=== PATIENT | female | born 1990 | race Caucasian/White ===

== ENCOUNTER 2016-04-21 21:52 | Emergency (ER) | payer BC, OTHER ==
[~2016-04-21] VITALS: Ht 160 cm; Wt 52.2 kg
[~2016-04-21 21:52] MED LIST: CIPR-255 PO; ONDA4TAB10 SL; OXYC1TAB3 PO
[2016-04-21 21:56] VITALS: TEMP 36.8; Ht 160 cm; Wt 52.2 kg
[2016-04-21] MEDS ORDERED: SERT50TA PO (22:15)
[2016-04-21] MEDS ORDERED: ONDANSETRON INJ 2 MG/ML 2 ML VIAL IV STA (22:28)
[2016-04-21] MEDS ORDERED: SODIUM CHLORIDE 0.9% 1000ML 1,000 ML IV STA (22:28)
[2016-04-21] MEDS ORDERED: KETOROLAC TROMETHAMINE 30 MG/ML VIAL IV STA (22:28)
[2016-04-21 22:50] LABS: BASO % 0.3 %; BASO ABS # 0.03 K/uL (0-0.2); COMPLETE YES; EOS % 1.6 %; IG% 0.2 %; LYMPH % 31.7 %; LYMPH ABS # 3.27 K/uL (1.2-3.4); MEAN CELL VOLUME 88.8 fL (80-100); MEAN CORPUSCULAR HEMOGLOBIN 31.5 pg (25-34); MEAN CORPUSCULAR HGB CONC 35.4 g/dl (32-36); MEAN PLATELET VOLUME 10.4 fL (7.4-10.4); MONO % 8.4 %; NEUT % 57.8 %; PLATELET COUNT 221 K/uL (130-400); RED BLOOD COUNT 3.94 M/uL (4.2-5.4); WHITE BLOOD COUNT 10.32 K/uL (4.8-10.8)
[2016-04-21 23:06] LABS: URINE APPEARANCE CLOUDY (CLEAR); URINE BILIRUBIN NEG (NEG); URINE COLOR YELLOW; URINE EPITHELIAL CELL AUTO >30 /lpf (0-5); URINE NITRITE NEG (NEG); URINE PH 5.5 (4.5-7.5); URINE SPECIFIC GRAVITY 1.017 (1.000-1.030); UROBILINOGEN POS (NEG); ZZUR CULT IF INDIC CLEAN CATCH YES
[2016-04-21 23:11] LABS: BUN/CREATININE RATIO 11.4 (10-20); CALCIUM 8.1 mg/dl (8.5-10.1); CREATININE 0.62 mg/dl (0.60-1.20); POTASSIUM 3.2 mmol/L (3.5-5.1)
[2016-04-21 23:14] LABS: ALB/GLOB RATIO 1.3 (0.9-2)
[2016-04-21 23:16] LABS: MANUAL MICROSCOPIC REQUIRED? NO; REVIEW REQ? YES
[2016-04-21 23:24] LABS: URINE MUCUS PRESENT (NONE PRSENT)
[2016-04-21] MEDS ORDERED: CIPROFLOXACIN 400MG / 200ML D5W IV STA (23:52)
[2016-04-22] MEDS ORDERED: MoRPHine SULFATE 2 MG/ML CARP IV STA (00:07)
[2016-04-22] MEDS ORDERED: CIPR-255 PO (02:11)
[2016-04-22] MEDS ORDERED: HYDR-5688 PO (02:11)
--- NOTE | 2016-04-22 02:13 | EMERGENCY ROOM VISIT NOTE ---
History First contact with patient: 22:11 Chief Complaint: ABDOMINAL PAIN Stated Complaint: HEADACHE,DIZZINESS,CRAMPING,VAG BLEEDING,KIDNEY PA Nursing Triage Summary: Patient c/o abdominal pain, radiates into right kidney and up right side of back. Patient also with vaginal bleeding, but states it is not time for her menstrual cycle. Patient was seen at walk in clinic and was given Macrobid but states she did not take it yet. Also c/o headache. History of Present Illness The patient is a 25 year old female who presents to the Emergency Department by private vehicle for evaluation of her RIGHT flank pain, bradycardia his urination, headache, and lightheadedness. She reports her symptoms have been ongoing for the last few days. She reports that she's had lower abdominal cramping which progressed into urinary urgency. She has had fevers and chills. She was seen earlier today at a walk-in clinic and provided Macrobid which she did not start. She reports that her symptoms worsened today which prompted her visit to the emergency Department this evening. She denies any nausea or vomiting. She reports no upper abdominal pain. She denies any chance for . She is tried [id number] medications for her symptoms. She rates her current discomfort as 9/10. The patient denies any chest pain, palpitations, shortness breath, hematemesis, hematochezia, melena, hematuria, or dysuria. Review of Systems A complete 10-point Review of Systems was discussed with the patient, with pertinent positives and negatives listed in the History of Present Illness. All remaining Review of Systems questions can be considered negative unless otherwise specified. Past Medical/Surgical History Medical Problems: (1) Vaginal delivery Family History No pertinent family history Social History Smoking Status: Current Every Day Smoker Smokeless Tobacco Use: No Drug Use: none Marital Status: single Housing Status: lives with family Current/Historical Medications Scheduled Ciprofloxacin Hcl (Cipro), 500 MG PO BID Sertraline (Zoloft), 50 MG PO DAILY Scheduled PRN Hydrocodone/Acetaminophen 5MG/325MG (Bailey 5MG/325MG), 1-2 TABLET PO Q4H PRN for Pain Allergies Coded Allergies: Latex1 -Allergic Contact Dermititis (Verified Allergy, Intermediate, CONDOMS = RASH, 10/20/15) Penicillins (Verified Allergy, Unknown, 10/20/15) Physical Exam Vital Signs Date Time Temp Pulse Resp B/P Pulse Ox O2 Delivery O2 Flow Rate FiO2 04/22/16 02:29 69 16 114/71 100 04/22/16 00:00 79 18 98 Room Air 04/21/16 21:56 36.8 84 16 116/74 97 Room Air Pain Rating (0-10): 9 Physical Exam VITAL SIGNS - Vital signs and nursing notes were reviewed. GENERAL - 25-year-old female appearing her stated age who is in no acute distress. Communicates well with provider and answers questions appropriately. LUNGS - Chest wall symmetric without accessory muscle use, intercostals retractions, or central cyanosis. Normal vesicular breath sounds CTA B/L. No wheezes, rales, or rhonchi appreciated. CARDIAC - RRR with S1/S2. No murmur, rubs, or gallops appreciated. ABDOMEN - Abdominal contour flat and without pulsations or visible masses. BS normoactive all four quadrants. No tenderness to palpation appreciated throughout. No guarding. No Rebound Tenderness. Negative Rovsing's. Negative Cai's. No palpable masses, hepatosplenomegaly, or ascites noted. Positive RIGHT sided CVA tenderness to percussion. EXTREMITIES - No clubbing or peripheral cyanosis. No pretibial edema present. +3 /5 radial and dorsalis pedis pulses palpated throughout. PSYCH - A&Ox3 and cooperates fully with examiner. Pt is very pleasant and interacts well with examiner. Medical Decision & Procedures ER Provider Diagnostic Interpretation: Radiological imaging and reports were reviewed by myself. Radiologist's Interpretation per [facility] as follows: US PELVIC/ENDOVAG: Appropriately positioned intrauterine device. 1.9 cm isoechoic nonvascular lesion in the right ovary is likely a complex cyst. Small amount of free pelvic fluid may be physiologic US RENAL: No hydronephrosis. Bladder wall thickening likely reflects lack of distention, but correlate for any symptoms of cystitis X-ray of the pelvis was obtained and reviewed by myself. IUD in place per my interpretation. Radiologist's impression unavailable to time of dictation. Laboratory Results 04/21/16 22:40 Red Blood Count 3.94, Mean Corpuscular Volume 88.8, Mean Corpuscular Hemoglobin 31.5, Mean Corpuscular Hemoglobin Concent 35.4, Mean Platelet Volume 10.4, Neutrophils (%) (Auto) 57.8, Lymphocytes (%) (Auto) 31.7, Monocytes (%) (Auto) 8.4, Eosinophils (%) (Auto) 1.6, Basophils (%) (Auto) 0.3, Neutrophils # (Auto) 5.97, Lymphocytes # (Auto) 3.27, Monocytes # (Auto) 0.87, Eosinophils # (Auto) 0.16, Basophils # (Auto) 0.03 04/21/16 22:40 Test 04/21/16 22:40 White Blood Count 10.32 K/uL (4.8-10.8) Red Blood Count 3.94 M/uL (4.2-5.4) Hemoglobin 12.4 g/dL (12.0-16.0) Hematocrit 35.0 % (37-47) Mean Corpuscular Volume 88.8 fL (80-100) Mean Corpuscular Hemoglobin 31.5 pg (25-34) Mean Corpuscular Hemoglobin Concent 35.4 g/dl (32-36) Platelet Count 221 K/uL (130-400) Mean Platelet Volume 10.4 fL (7.4-10.4) Neutrophils (%) (Auto) 57.8 % Lymphocytes (%) (Auto) 31.7 % Monocytes (%) (Auto) 8.4 % Eosinophils (%) (Auto) 1.6 % Basophils (%) (Auto) 0.3 % Neutrophils # (Auto) 5.97 K/uL (1.4-6.5) Lymphocytes # (Auto) 3.27 K/uL (1.2-3.4) Monocytes # (Auto) 0.87 K/uL (0.11-0.59) Eosinophils # (Auto) 0.16 K/uL (0-0.5) Basophils # (Auto) 0.03 K/uL (0-0.2) RDW Standard Deviation 39.7 fL (36.4-46.3) RDW Coefficient of Variation 12.3 % (11.5-14.5) Immature Granulocyte % (Auto) 0.2 % Immature Granulocyte # (Auto) 0.02 K/uL (0.00-0.02) Urine Color YELLOW Urine Appearance CLOUDY (CLEAR) Urine pH 5.5 (4.5-7.5) Urine Specific [place] 1.017 (1.000-1.030) Urine Protein TRACE (NEG) Urine Glucose (UA) NEG (NEG) Urine Ketones NEG (NEG) Urine Occult Blood 3+ (NEG) Urine Nitrite NEG (NEG) Urine Bilirubin NEG (NEG) Urine Urobilinogen POS (NEG) Urine Leukocyte Esterase MODERATE (NEG) Urine WBC (Auto) 10-30 /hpf (0-5) Urine RBC (Auto) 10-30 /hpf (0-4) Urine Hyaline Casts (Auto) 0 /lpf (0-5) Urine Epithelial Cells (Auto) >30 /lpf (0-5) Urine Bacteria (Auto) 1+ (NEG) Urine Mucus PRESENT (NONE PRSENT) Urine Yeast (Auto) (NONE PRSENT) Urine Test NEG (NEG) Anion Gap 9.0 mmol/L (3-11) Est Creatinine Clear Calc Drug Dose 113.3 ml/min Estimated GFR () 144.2 Estimated GFR (Non- 124.4 BUN/Creatinine Ratio 11.4 (10-20) Calcium Level 8.1 mg/dl (8.5-10.1) Magnesium Level 2.0 mg/dl (1.8-2.4) Total Bilirubin 0.4 mg/dl (0.2-1) Aspartate Amino Transf (AST/SGOT) 11 U/L (15-37) Alanine Aminotransferase (ALT/SGPT) 16 U/L (12-78) Alkaline Phosphatase 52 U/L (45-117) Total Protein 6.7 gm/dl (6.4-8.2) Albumin 3.8 gm/dl (3.4-5.0) Globulin 2.9 gm/dl (2.5-4.0) Albumin/Globulin Ratio 1.3 (0.9-2) Date/Time Source Procedure Growth Status 04/21/16 22:40 Urine , Clean Catch Urine Culture - Final THREE TYPES OF ORGANSIMS PRESENT, ALL... Complete Medications Administered Medications (Trade) Dose Ordered Sig/July Route Start Time Stop Time Status Last Admin Dose Admin Sodium Chloride (Nss 1000ml) 1,000 ml @ 999 mls/hr Q1H1M STAT IV 04/21/16 22:28 04/21/16 23:28 DC 04/21/16 22:28 999 MLS/HR Ondansetron HCl (Zofran Inj) 4 mg NOW STAT IV 04/21/16 22:28 04/21/16 22:31 DC 04/21/16 22:28 4 MG Ketorolac Tromethamine (Toradol Inj) 30 mg NOW STAT IV 04/21/16 22:28 04/21/16 22:31 DC 04/21/16 22:28 30 MG Ciprofloxacin/ Dextrose (Cipro / D5w) 400 mg NOW STAT IV 04/21/16 23:52 04/21/16 23:54 DC 04/22/16 00:10 400 MG Morphine Sulfate (MoRPHine SULFATE INJ) 2 mg NOW STAT IV 04/22/16 00:07 04/22/16 00:08 DC 04/22/16 00:10 2 MG Ciprofloxacin (Cipro 500MG Home Pack) 1 homepack UD ONCE PO 04/22/16 02:15 04/22/16 02:16 DC 04/22/16 02:25 1 HOMEPACK Acetaminophen/ Hydrocodone Bitart (Bailey 5/325mg Home Pack) 1 homepack UD ONCE PO 04/22/16 02:15 04/22/16 02:16 DC 04/22/16 02:24 1 HOMEPACK ED Course Patient was seen and evaluated by myself. Labs were drawn, saline lock in place. The patient was hydrated with a 1000 mL normal saline bolus. She received 4 mg Zofran and 30 g Toradol intravenously for pain. Laboratory results demonstrate no acute leukocytosis, worrisome anemia, or bandemia. The patient has no significant electrolyte abnormalities. Urinalysis concerning for UTI. Patient was treated with IV Cipro. After return from ultrasound imaging studies, the patient complains of increasing pain. She was treated with 2 mg morphine for pain. Imaging results above. Laboratory results and imaging studies were reviewed patient who acknowledges understanding. The patient was placed on Cipro for home. She was educated on following up with her primary care provider from today's visit. She was educated on worrisome symptoms for return visit to the emergency department. Patient discharged home afebrile and in good condition. Medical Decision Given the patient's presentation and exam findings, I did elect to perform the above-mentioned workup. The patient presents today complaining of flank pain as well as dysuria. She has no fever. She has no leukocytosis. She does have findings of her urine consistent with UTI. The patient is likely experiencing an acute pyelonephritis. The patient will be treated with IV Cipro. She'll be changed from Macrobid which has much less today coverage. The patient will follow with her primary care provider from today's visit. She will return for any changing or worsening symptoms. Patient discharged home afebrile and in good condition. In the evaluation and treatment of this patient, the following differential diagnoses were considered: Bladder Cancer, Chlamydial Genitourinary Infection, Cystitis, Herpes Simplex, Interstitial Cystitis, PID, Pyelonephritis, Urethritis , or Vaginitis. Impression Primary Impression: Pyelonephritis Departure Information Dispostion Home / Self-Care Condition GOOD Prescriptions Hydrocodone/Acetaminophen 5MG/325MG (Bailey 5MG/325MG) Tab 1-2 TABLET PO Q4H Y for Pain, #16 TAB For Initial Treatment Prov: Rick Recinos PA-C 04/22/16 Ciprofloxacin Hcl (CIPRO) 500 Mg Tab 500 MG PO BID for 10 Days, #20 TAB Prov: Rick Recinos PA-C 04/22/16 Referrals Saul Scruggs MD (PCP) Patient Instructions My [facility], Pyelonephritis - [facility] Additional Instructions You have been treated in the Emergency Department for a Kidney Infection ( Pyelonephritis). You have been prescribed Cipro to be taken as prescribed. This is an antibiotic. All antibiotics have the potential to cause diarrhea. Stop this medication and contact a medical provider if you were to develop any significant adverse side effects including: wheezing, shortness of breath, passing out, vomiting, or a diffuse rash. Always take antibiotics as directed and COMPLETE the ENTIRE course regardless of the improvement of your symptoms. You have been prescribed Bailey to be used for pain control. This is a narcotic medication. You cannot drive or consume alcohol while on this medicine. This medicine should only be used for pain that cannot be controlled with over-the- counter pain medicines. For pain control, you can use the following [id number]-[id number] medicines (if >12 yo): - Regular strength (325mg/tab) Tylenol (acetaminophen) 2 tabs every 4-6 hours as needed. Do not exceed 12 tablets in a 24 hour period. Avoid taking more than 4 grams (4000 mg) of Tylenol per day. This includes any other sources of acetaminophen you may take on a regular basis. - Regular strength (200 mg/tab) Advil (ibuprofen) 1-2 tabs every 4-6 hours as needed. Do not exceed a dose of 3200 mg per day. Drink plenty of water and stay well hydrated. As with any trip to the Emergency Department, you should follow-up with your Primary Care Provider from today's visit. Return to the emergency department if your symptoms persist despite treatment plan outlined above or if the following symptoms occur: increased fevers, chills , low back pain, nausea/vomiting, or blood in your urine.
[2016-04-22] MEDS ORDERED: CIPROFLOXACIN 500MG HOME PACK PO ONE (02:15)
[2016-04-22] MEDS ORDERED: NORCO 5/325MG HOME PACK PO ONE (02:15)
[2016-04-22 02:29] VITALS: BP 114/71; PULSE 69; O2SAT 100
--- NOTE | 2016-04-22 06:39 | DIAGNOSTIC IMAGING REPORT ---
PELVIS 1 OR 2 VIEW ROUTINE CLINICAL HISTORY: IUD placement pain COMPARISON: None. DISCUSSION: The bones and joint spaces appear intact. There is no evidence of fracture, dislocation or bony disease. There is no evidence for soft tissue swelling. Intrauterine device located centrally IMPRESSION: Negative study. Electronically signed by: Rodriguez Pinedo M.D. 04/22/2016 6:37 AM Dictated Date/Time: 04/22/2016 6:37 AM
--- NOTE | 2016-04-22 06:41 | DIAGNOSTIC IMAGING REPORT ---
PELVIC ULTRASOUND, TRANSABDOMINAL AND TRANSVAGINAL HISTORY: Pelvic pain IUD placement COMPARISON: None. FINDINGS: Uterus: Midline and anteflexed in configuration. Intrauterine device located centrally. Endometrial stripe: 5 mm Right ovary: Normal vascular flow with bone 0.9 cm cyst Left ovary: Normal in size and demonstrates normal color flow. Miscellaneous:No pelvic free fluid. IMPRESSION: Intrauterine device in appropriate position within the central uterine canal. Small right ovarian cyst. Electronically signed by: Rodriguez Pinedo M.D. 04/22/2016 6:40 AM Dictated Date/Time: 04/22/2016 6:39 AM
--- NOTE | 2016-04-22 07:19 | DIAGNOSTIC IMAGING REPORT ---
ULTRASOUND KIDNEYS AND BLADDER CLINICAL HISTORY: Flank pain. COMPARISON STUDY: Renal ultrasound dated 10/20/2015. TECHNIQUE: Real-time, grayscale, and color flow sonography of the kidneys and bladder is performed. Images are reviewed in the transverse and longitudinal planes. FINDINGS: Kidneys: The kidneys are normal in size and echotexture. The right kidney measures 11.3 x 4.1 x 5.6 cm and the left kidney measures 12.5 x 5.6 x 4.6 cm. There is no hydronephrosis. No shadowing renal calculi are identified. There is no sonographic evidence of contour deforming renal mass lesion. No perinephric fluid is identified. Bladder: The bladder is decompressed and grossly unremarkable. Ureteral jets were not seen. An intrauterine device is noted in the partially imaged uterus. IMPRESSION: 1. The kidneys are normal in size and without hydronephrosis. 2. The bladder was decompressed and not well evaluated. Electronically signed by: Ventura Almonte M.D. 04/22/2016 7:18 AM Dictated Date/Time: 04/22/2016 7:16 AM
== END 2016-04-22 02:30 | disposition home or self-care (01) ==
LOC: C.EDB 21:53 → C.EDA 04-22 02:30
DX: N12 Tubulo-interstitial nephritis, not specified as acute or chronic (principal); F17.210 Nicotine dependence, cigarettes, uncomplicated; Z79.899 Other long term (current) drug therapy

== ENCOUNTER 2016-04-25 15:48 | Emergency (ER) | payer OTHER ==
[~2016-04-25] VITALS: Ht 160 cm; Wt 52.7 kg
[~2016-04-25 15:48] MED LIST changes: +HYDR-5688 PO; -ONDA4TAB10 SL; -OXYC1TAB3 PO; +SERT50TA PO
[2016-04-25 15:52] VITALS: TEMP 36.8; Ht 160 cm; Wt 52.7 kg
[2016-04-25] MEDS ORDERED: KETOROLAC TROMETHAMINE 30 MG/ML VIAL IV STA (16:06)
[2016-04-25] MEDS ORDERED: SODIUM CHLORIDE 0.9% 1000ML 1,000 ML IV STA (16:06)
--- NOTE | 2016-04-25 16:35 | EMERGENCY ROOM VISIT NOTE ---
History Report prepared by Summer: Barbie Tolliver Under the Supervision of: Dr. Jelena Valdez D.O. First contact with patient: 15:57 Chief Complaint: INFECTION Stated Complaint: KIDNEY INFECTION, VAGINAL BLEEDING- PHYSICIAN REF Nursing Triage Summary: pt c/o kidney infection. sent here from pcp for right flank pain. was seen here thursday had f/u today. pt also has vaginal bleeding History of Present Illness The patient is a 25 year old female who presents to the Emergency Room with complaints of a persistent infection that began several days ago. She currently rates her discomfort as a 7/10 in severity. The patient states that last she developed right flank pain and states that Thursday she developed vaginal bleeding. She states that Thursday she went [employer] in [place] and was given a prescription for Macrobid for a UTI. The patient states that her pain worsened Thursday evening so she came to the emergency department for further work up. She states that after all of her testings, she was placed on Cipro for a kidney infection. The patient states that today she had a follow up with her PCP, and was instructed to come back to the emergency department for a CT scan. She states that she has a history of a kidney stone in September. The patient denies any being on any blood thinners. The patient states that her pain is wrapping from her right flank to her pelvic area. She additionally notes leg aches today and a headache today. The patient denies any previous abdominal surgeries. She states that she was given oxycodone for her pain, noting that she has taken it at night to help alleviate her pain. Source of History: patient Onset: several days ago Position: other (global) Symptom Intensity: 7/10 Quality: other (infection) Timing: other (persistent) Associated Symptoms: + abdominal pain (pelvic pain), + headache Note: Associated Symptoms: right flank pain, vaginal bleeding, leg cramping Review of Systems See HPI for pertinent positives & negatives. A total of 10 systems reviewed and were otherwise negative. Past Medical & Surgical Medical Problems: (1) Vaginal delivery Family History No pertinent family history Social History Smoking Status: Current Every Day Smoker Drug Use: none Marital Status: single Housing Status: lives with family Current/Historical Medications Scheduled Ciprofloxacin Hcl (Cipro), 500 MG PO BID Sertraline (Zoloft), 50 MG PO DAILY Scheduled PRN Hydrocodone/Acetaminophen 5MG/325MG ([place] 5MG/325MG), 1-2 TABLET PO Q4H PRN for Pain Allergies Coded Allergies: Latex1 -Allergic Contact Dermititis (Verified Allergy, Intermediate, CONDOMS = RASH, 04/25/16) Penicillins (Verified Allergy, Unknown, 04/25/16) Physical Exam Vital Signs Date Time Temp Pulse Resp B/P Pulse Ox O2 Delivery O2 Flow Rate FiO2 04/25/16 17:41 64 20 120/56 97 04/25/16 15:52 36.8 97 18 104/68 100 Room Air Physical Exam HEENT: Head - normocephalic and atraumatic Pupils are equal, round, and reactive to light. Extraocular eye muscles are intact, and sclera are anicteric. Nose - moist nasal mucosa without discharge. Mouth - moist buccal mucosa. Oropharynx is nonerythematous and there is no tonsillar exudate or edema noted. Neck: Supple; no JVD, nuchal rigidity, cervical lymphadenopathy. Heart: Regular rate and rhythm. There is a normal S1 and S2 with no murmurs, clicks, or gallops appreciated. Lungs: Clear to auscultation bilaterally with no wheezes, rales, or rhonchi. Abdomen: Soft, completely nontender, nondistended, with good bowel sounds. There are no palpable pulsatile masses or hepatosplenomegaly. There is no guarding, rigidity, or rebound noted. Back: Right CVA tenderness. Extremities: No evidence of cyanosis, clubbing, or edema. There are easily palpable peripheral pulses. Skin: warm and dry with good turgor and no rashes. Medical Decision & Procedures ER Provider Diagnostic Interpretation: CT results as stated below per my review and radiologist interpretation: ABDOMEN AND PELVIS CT WITHOUT CONTRAST CT DOSE: 429.92 mGy.cm HISTORY: Flank pain right flank pain TECHNIQUE: Multiaxial CT images of the abdomen and pelvis were performed without the use of intravenous and oral contrast according to the standard department stone protocol. COMPARISON STUDY: 72,012 FINDINGS: Lung bases are clear. Liver spleen and pancreas are unremarkable within limitations of an unenhanced scan. Kidneys negative for hydronephrosis or calcification. Increased fecal load is present throughout the colon. Uterus is anteflexed. There is intrauterine device within the central canal. IMPRESSION: 1. Increased fecal load throughout the colon consistent with a component of fecal stasis. 2. Study is otherwise negative within limitations of unenhanced scan. Electronically signed by: Rodriguez Pinedo M.D. 04/25/2016 4:57 PM Dictated Date/Time: 04/25/2016 4:55 PM Laboratory Results 04/25/16 16:25 Red Blood Count 4.09, Mean Corpuscular Volume 90.0, Mean Corpuscular Hemoglobin 31.3, Mean Corpuscular Hemoglobin Concent 34.8, Mean Platelet Volume 10.4, Neutrophils (%) (Auto) 53.8, Lymphocytes (%) (Auto) 36.7, Monocytes (%) (Auto) 6.7, Eosinophils (%) (Auto) 2.2, Basophils (%) (Auto) 0.5, Neutrophils # (Auto) 4.09, Lymphocytes # (Auto) 2.79, Monocytes # (Auto) 0.51, Eosinophils # (Auto) 0.17, Basophils # (Auto) 0.04 04/25/16 16:25 Test 04/25/16 16:25 White Blood Count 7.61 K/uL (4.8-10.8) Red Blood Count 4.09 M/uL (4.2-5.4) Hemoglobin 12.8 g/dL (12.0-16.0) Hematocrit 36.8 % (37-47) Mean Corpuscular Volume 90.0 fL (80-100) Mean Corpuscular Hemoglobin 31.3 pg (25-34) Mean Corpuscular Hemoglobin Concent 34.8 g/dl (32-36) Platelet Count 237 K/uL (130-400) Mean Platelet Volume 10.4 fL (7.4-10.4) Neutrophils (%) (Auto) 53.8 % Lymphocytes (%) (Auto) 36.7 % Monocytes (%) (Auto) 6.7 % Eosinophils (%) (Auto) 2.2 % Basophils (%) (Auto) 0.5 % Neutrophils # (Auto) 4.09 K/uL (1.4-6.5) Lymphocytes # (Auto) 2.79 K/uL (1.2-3.4) Monocytes # (Auto) 0.51 K/uL (0.11-0.59) Eosinophils # (Auto) 0.17 K/uL (0-0.5) Basophils # (Auto) 0.04 K/uL (0-0.2) RDW Standard Deviation 40.7 fL (36.4-46.3) RDW Coefficient of Variation 12.4 % (11.5-14.5) Immature Granulocyte % (Auto) 0.1 % Immature Granulocyte # (Auto) 0.01 K/uL (0.00-0.02) Anion Gap 8.0 mmol/L (3-11) Est Creatinine Clear Calc Drug Dose 121.5 ml/min Estimated GFR () 147.4 Estimated GFR (Non- 127.2 BUN/Creatinine Ratio 12.1 (10-20) Calcium Level 8.5 mg/dl (8.5-10.1) Total Bilirubin 0.2 mg/dl (0.2-1) Direct Bilirubin < 0.1 mg/dl (0-0.2) Aspartate Amino Transf (AST/SGOT) 14 U/L (15-37) Alanine Aminotransferase (ALT/SGPT) 17 U/L (12-78) Alkaline Phosphatase 61 U/L (45-117) Total Protein 7.3 gm/dl (6.4-8.2) Albumin 4.0 gm/dl (3.4-5.0) Laboratory results per my review. Medications Administered Medications (Trade) Dose Ordered Sig/July Route Start Time Stop Time Status Last Admin Dose Admin Sodium Chloride (Nss 1000ml) 1,000 ml @ 999 mls/hr Q1H1M STAT IV 04/25/16 16:06 04/25/16 17:06 DC 04/25/16 17:08 999 MLS/HR Ketorolac Tromethamine (Toradol Inj) 30 mg NOW STAT IV 04/25/16 16:06 04/25/16 16:08 DC 04/25/16 17:09 30 MG Procedure The patient was treated with Toradol Inj 30 mg IV, Sodium Chloride 1000 ml @ 999 mls/hr IV. ED Course 1600: Past medical records reviewed. The patient was evaluated in room B11B. A complete history and physical exam was performed. An IV lock was initiated and labs are drones above. The patient went for a CT scan of the abdomen/pelvis to rule out a ureteral calculi. 1606: Ordered Toradol Inj 30 mg IV, Sodium Chloride 1000 ml @ 999 mls/hr IV. 1714: I reevaluated the patient and she is feeling better. I discussed all the exam findings with her and I discussed the treatment plan. She verbalized complete understanding and agreement. She is ready to go home. Medical Decision The patient is a 25 year old female who presents to the ED with infection. Differential diagnosis includes pyelonephritis, infected kidney stone, appendicitis Lab interpretation: normal white count, stable H&H, BUN 7, creatinine 0.5, glucose 96, LFTs are normal. The patient's urine culture from couple of days ago was negative. CT scan of the abdomen/pelvis shows no evidence of kidney stone. I've encouraged patient use Tylenol or Motrin for pain. She can follow-up with her PCP if the symptoms persist. The patient had a moderate amount of stool on CT scan. She was encouraged to use milk of magnesia. Impression Primary Impression: Right flank pain Additional Impression: Constipation Scribe Attestation The scribe's documentation has been prepared under my direction and personally reviewed by me in its entirety. I confirm that the note above accurately reflects all work, treatment, procedures, and medical decision making performed by me. Departure Information Dispostion Home / Self-Care Referrals Saul Scruggs MD (PCP) Forms HOME CARE DOCUMENTATION FORM, IMPORTANT VISIT INFORMATION, WORK / SCHOOL INSTRUCTIONS Patient Instructions Constipation, ED Flank Pain Uncertain Cause, My [facility] Additional Instructions Rest. Stop the Cipro Take milk of magnesia til having soft/runny stools Follow up with PCP if pain persists Problem Qualifiers
[2016-04-25 16:44] LABS: BASO % 0.5 %; BASO ABS # 0.04 K/uL (0-0.2); COMPLETE YES; EOS % 2.2 %; HEMATOCRIT 36.8 % (37-47); IG% 0.1 %; LYMPH % 36.7 %; LYMPH ABS # 2.79 K/uL (1.2-3.4); MEAN CORPUSCULAR HEMOGLOBIN 31.3 pg (25-34); MEAN CORPUSCULAR HGB CONC 34.8 g/dl (32-36); MEAN PLATELET VOLUME 10.4 fL (7.4-10.4); MONO % 6.7 %; NEUT % 53.8 %; PLATELET COUNT 237 K/uL (130-400); RED BLOOD COUNT 4.09 M/uL (4.2-5.4); WHITE BLOOD COUNT 7.61 K/uL (4.8-10.8)
--- NOTE | 2016-04-25 16:59 | DIAGNOSTIC IMAGING REPORT ---
ABDOMEN AND PELVIS CT WITHOUT CONTRAST CT DOSE: 429.92 mGy.cm HISTORY: Flank pain right flank pain TECHNIQUE: Multiaxial CT images of the abdomen and pelvis were performed without the use of intravenous and oral contrast according to the standard department stone protocol. COMPARISON STUDY: 72,012 FINDINGS: Lung bases are clear. Liver spleen and pancreas are unremarkable within limitations of an unenhanced scan. Kidneys negative for hydronephrosis or calcification. Increased fecal load is present throughout the colon. Uterus is anteflexed. There is intrauterine device within the central canal. IMPRESSION: 1. Increased fecal load throughout the colon consistent with a component of fecal stasis. 2. Study is otherwise negative within limitations of unenhanced scan. Electronically signed by: Rodriguez Pinedo M.D. 04/25/2016 4:57 PM Dictated Date/Time: 04/25/2016 4:55 PM
[2016-04-25 17:01] LABS: ALT/SGPT 17 U/L (12-78); BLOOD UREA NITROGEN 7 mg/dl (7-18); BUN/CREATININE RATIO 12.1 (10-20); CALCIUM 8.5 mg/dl (8.5-10.1); CARBON DIOXIDE 24 mmol/L (21-32); CHLORIDE 109 mmol/L (98-107); CREATININE 0.58 mg/dl (0.60-1.20); GLUCOSE 96 mg/dl (70-99); POTASSIUM 3.8 mmol/L (3.5-5.1); SODIUM 141 mmol/L (136-145)
[2016-04-25 17:06] LABS: ALKALINE PHOSPHATASE 61 U/L (45-117); AST/SGOT 14 U/L (15-37)
[2016-04-25 17:41] VITALS: BP 120/56; PULSE 64; O2SAT 97
== END 2016-04-25 17:42 | disposition home or self-care (01) ==
LOC: C.EDB 15:50 → C.EDC 17:42
DX: R10.30 Lower abdominal pain, unspecified (principal); K59.00 Constipation, unspecified; F17.200 Nicotine dependence, unspecified, uncomplicated; Z79.899 Other long term (current) drug therapy; Z88.0 Allergy status to penicillin; Z91.040 Latex allergy status

== ENCOUNTER 2016-08-27 10:40 | Emergency (ER) | payer OTHER ==
[~2016-08-27] VITALS: Ht 160 cm; Wt 54.7 kg
[2016-08-27 10:57] VITALS: TEMP 36.9; Ht 160 cm; Wt 54.7 kg
[2016-08-27 12:00] LABS: BASO % 0.3 %; BASO ABS # 0.03 K/uL (0-0.2); COMPLETE YES; EOS % 0.7 %; HEMATOCRIT 39.2 % (37-47); IG% 0.2 %; LYMPH % 19.6 %; LYMPH ABS # 1.98 K/uL (1.2-3.4); MEAN CELL VOLUME 90.7 fL (80-100); MEAN CORPUSCULAR HEMOGLOBIN 30.8 pg (25-34); MEAN CORPUSCULAR HGB CONC 33.9 g/dl (32-36); MEAN PLATELET VOLUME 10.6 fL (7.4-10.4); MONO % 7.9 %; NEUT % 71.3 %; PLATELET COUNT 261 K/uL (130-400); RED BLOOD COUNT 4.32 M/uL (4.2-5.4); WHITE BLOOD COUNT 10.09 K/uL (4.8-10.8)
[2016-08-27 12:09] LABS: BUN/CREATININE RATIO 7.9 (10-20); CREATININE 0.73 mg/dl (0.60-1.20); POTASSIUM 3.3 mmol/L (3.5-5.1)
[2016-08-27] MEDS ORDERED: SODIUM CHLORIDE 0.9% 1000ML 1,000 ML IV STA (12:12)
[2016-08-27] MEDS ORDERED: ONDANSETRON INJ 2 MG/ML 2 ML VIAL IV STA (12:12)
[2016-08-27] MEDS ORDERED: HYDROmorphone INJ 1 MG/ML SYR IV STA (12:12)
[2016-08-27] MEDS ORDERED: CEFTRIAXONE SOD INJ 1 GM ADDVIAL IV STA (12:12)
[2016-08-27] MEDS ORDERED: KETOROLAC TROMETHAMINE 30 MG/ML VIAL IV STA (12:12)
[2016-08-27 12:15] LABS: ALB/GLOB RATIO 1.2 (0.9-2)
--- NOTE | 2016-08-27 12:16 | EMERGENCY ROOM VISIT NOTE ---
History Report prepared by Summer: Abimael Carver Under the Supervision of: Dr. Donte Nash M.D. First contact with patient: 12:05 Chief Complaint: GI ASSESSMENT Stated Complaint: CARRION, N, DIZZY, FEVER, ABD. PAIN, BLOOD LOSS Nursing Triage Summary: pt reports for the "past few months I have been having inconsistent periods, I get a period and then I get bleeding with clots, I had a actual period for fathers day and now today I've got heavy flow and blood clots. I feel like I have a UTI and I have been getting them off and on since I got my IUD, I have begged my [employer] to take it out but she keeps sending me to my PCP to get worked up for the UTIs." "Something just isnt right I dont feel right and no one is listening to me." History of Present Illness The patient is a 25 year old female who presents to the Emergency Room with complaints of worsening abdominal pain that started last week. She says that she had an IUD inserted in 2013, and ever since then, she has had many issues. The patient states that for the past week, she has abdominal pain ever since she coughed and went to turn, and thinks she pulled a muscle. She says that almost every time she moves now, she feels the pain. The patient describes the pain as excruciating, and wraps around both sides of her back. She has been taking Tylenol for the pain. The patient notes that for the past 2 days, she has been having lots of vaginal bleeding. She says that last night, she was pushing to have a bowel movement, but she felt like she was being "shredded inside" and she started "gushing" blood. She states that she has had off and on issues for a year, and in the past 6 months, she has had 3 UTI's and kidney stones. The patient says that this is her second period this month. She has no chance of due to the IUD. The patient's mother had endometriosis. Source of History: patient Onset: Last week Position: abdomen Timing: worsening Modifying Factors (Worsening): movement Associated Symptoms: + back pain Note: Associated symptoms: Vaginal bleeding. Second period this month. Review of Systems See HPI for pertinent positives & negatives. A total of 10 systems reviewed and were otherwise negative. Past Medical & Surgical Medical Problems: (1) Vaginal delivery Family History Endometriosis Social History Smoking Status: Never Smoker Drug Use: none Marital Status: single Housing Status: lives with family Current/Historical Medications Scheduled Doxycycline Monohydrate (Monodox), 100 MG PO BID Metronidazole (Flagyl), 500 MG PO BID Ondasetron Odt (Zofran Odt), 4 MG SL Q6H Sertraline (Zoloft), 50 MG PO DAILY Scheduled PRN Oxycodone/Acetaminophen 5MG/325MG (Percocet 5MG/325MG), 1-2 TAB PO Q4H PRN for Pain Allergies Coded Allergies: Latex1 -Allergic Contact Dermititis (Verified Allergy, Intermediate, CONDOMS = RASH, 04/25/16) Penicillins (Verified Allergy, Unknown, 04/25/16) Physical Exam Vital Signs Date Time Temp Pulse Resp B/P (MAP) Pulse Ox O2 Delivery O2 Flow Rate FiO2 08/27/16 15:10 82 16 132/75 98 08/27/16 13:50 68 16 115/76 99 Room Air 08/27/16 12:48 72 16 112/75 99 Room Air 08/27/16 10:57 36.9 75 18 109/69 99 Room Air Physical Exam GENERAL: Patient is a healthy-appearing well-nourished 25 year old female. HEAD: Normocephalic atraumatic EYES: Ocular movements intact pupils equal and react to light OROPHARYNX mucous membranes are moist no exudates present no erythema or edema present NECK: Supple no nuchal rigidity CHEST: Good equal expansion LUNGS: Clear and equal to auscultation CARDIAC: Normal S1 and S2 ABDOMEN: Soft no guarding. Minimally tender in left lower quadrant. BACK: No CVA tenderness EXTREMITIES: No pain upon palpation normal muscle strength in all groups no clubbing cyanosis or edema NEURO: Patient is following commands and answering questions appropriately. Alert and oriented x3 Cranial Nerves 2-12 grossly intact Medical Decision & Procedures ER Provider Diagnostic Interpretation: Radiology results as stated below per my review and radiologist interpretation: EXAMINATION: RENAL ULTRASOUND CLINICAL HISTORY: Left flank pain COMPARISON STUDY: April 21, 2016 FINDINGS: The right kidney measures 10.7 cm. The left kidney measures 11.8 cm. There is no evidence of hydronephrosis. There are no renal masses. The bladder was incompletely distended. The left ureteral jet was visualized, the right ureteral jet was not visualized. Borderline bladder wall thickening may be secondary to incomplete distended bladder. IMPRESSION : 1. No renal masses identified. No evidence of hydronephrosis 2. Borderline bladder wall thickening possibly secondary to incomplete bladder distention Electronically signed by: Prosper Reich M.D. 08/27/2016 1:47 PM Dictated Date/Time: 08/27/2016 1:45 PM PELVIC COMPLETE NON OB HISTORY: 25 rolled female presents with acute left-sided flank pain. COMPARISON: Renal ultrasound of same day, CT abdomen and pelvis 04/25/2016. TECHNIQUE: Multiple real-time sonographic images of the deep pelvic structures were obtained transabdominally and transvaginally assessing grayscale appearance, color and spectral flow. FINDINGS: Transabdominal: Anteflexed uterus measures 9.4 x 4.9 x 5.6 cm. Intrauterine device appears to be appropriately located in the central fundal uterus. The right ovary measures 2.9 x 1.6 x 2.7 cm. Normal-appearing arterial inflow is documented within the right ovary. The left ovary measures 4.2 x 2.2 x 3.2 cm and appears to be within normal limits with normal truant flow documented. Transvaginal: Uterus measures 9.3 x 4.1 x 6.9 cm. Endometrium measures 0.5 cm. The right ovary measures 3.3 x 1.5 x 2.6 cm and is within normal limits. Left adnexum is partially obscured by bowel gas with the left ovary measures 3.4 x 1.5 x 2.7 cm. There is trace free fluid within the cul-de-sac, likely physiologic. IMPRESSION: 1. Unremarkable sonographic appearance of the uterus and ovaries without evidence of torsion. 2. IUD in situ. 3. Trace free pelvic fluid, likely physiologic. Electronically signed by: Dennis Chase 08/27/2016 1:56 PM Dictated Date/Time: 08/27/2016 1:45 PM KUB CLINICAL HISTORY: Pt c/o left sided flank pain flank pain COMPARISON STUDY: 08/03/2014 FINDINGS: Nonobstructive bowel pattern. Intrauterine device seen centrally within the soft tissue pelvis. This is unchanged from the prior exam. No new or interval findings. IMPRESSION: Negative study. Intrauterine device unchanged in position within the soft tissue pelvis compared to the prior study. Electronically signed by: Rodriguez Pinedo M.D. 08/27/2016 1:52 PM Dictated Date/Time: 08/27/2016 1:50 PM Laboratory Results 08/27/16 11:12 Red Blood Count 4.32, Mean Corpuscular Volume 90.7, Mean Corpuscular Hemoglobin 30.8, Mean Corpuscular Hemoglobin Concent 33.9, Mean Platelet Volume 10.6, Neutrophils (%) (Auto) 71.3, Lymphocytes (%) (Auto) 19.6, Monocytes (%) (Auto) 7.9, Eosinophils (%) (Auto) 0.7, Basophils (%) (Auto) 0.3, Neutrophils # (Auto) 7.19, Lymphocytes # (Auto) 1.98, Monocytes # (Auto) 0.80, Eosinophils # (Auto) 0.07, Basophils # (Auto) 0.03 08/27/16 11:12 Test 08/27/16 00:00 08/27/16 11:12 08/27/16 14:27 Urine Color RED Urine Appearance SL CLOUDY (CLEAR) Urine pH 6.5 (4.5-7.5) Urine Specific [place] <= 1.005 (1.000-1.030) Urine Protein 2+ (NEG) Urine Glucose (UA) NEG (NEG) Urine Ketones NEG (NEG) Urine Occult Blood 3+ (NEG) Urine Nitrite NEG (NEG) Urine Bilirubin NEG (NEG) Urine Urobilinogen NEG (NEG) Urine Leukocyte Esterase MODERATE (NEG) Urine RBC >30 /hpf (0-4) Urine WBC >30 /hpf (0-5) Urine Epithelial Cells >30 /lpf (0-5) Urine Bacteria 1+ (NEG) Urine Test NEG (NEG) White Blood Count 10.09 K/uL (4.8-10.8) Red Blood Count 4.32 M/uL (4.2-5.4) Hemoglobin 13.3 g/dL (12.0-16.0) Hematocrit 39.2 % (37-47) Mean Corpuscular Volume 90.7 fL (80-100) Mean Corpuscular Hemoglobin 30.8 pg (25-34) Mean Corpuscular Hemoglobin Concent 33.9 g/dl (32-36) Platelet Count 261 K/uL (130-400) Mean Platelet Volume 10.6 fL (7.4-10.4) Neutrophils (%) (Auto) 71.3 % Lymphocytes (%) (Auto) 19.6 % Monocytes (%) (Auto) 7.9 % Eosinophils (%) (Auto) 0.7 % Basophils (%) (Auto) 0.3 % Neutrophils # (Auto) 7.19 K/uL (1.4-6.5) Lymphocytes # (Auto) 1.98 K/uL (1.2-3.4) Monocytes # (Auto) 0.80 K/uL (0.11-0.59) Eosinophils # (Auto) 0.07 K/uL (0-0.5) Basophils # (Auto) 0.03 K/uL (0-0.2) RDW Standard Deviation 41.2 fL (36.4-46.3) RDW Coefficient of Variation 12.3 % (11.5-14.5) Immature Granulocyte % (Auto) 0.2 % Immature Granulocyte # (Auto) 0.02 K/uL (0.00-0.02) Anion Gap 9.0 mmol/L (3-11) Est Creatinine Clear Calc Drug Dose 96.6 ml/min Estimated GFR () 131.7 Estimated GFR (Non- 113.7 BUN/Creatinine Ratio 7.9 (10-20) Calcium Level 9.0 mg/dl (8.5-10.1) Total Bilirubin 0.4 mg/dl (0.2-1) Aspartate Amino Transf (AST/SGOT) 15 U/L (15-37) Alanine Aminotransferase (ALT/SGPT) 22 U/L (12-78) Alkaline Phosphatase 75 U/L (45-117) Total Creatine Kinase 90 U/L (26-192) Total Protein 7.8 gm/dl (6.4-8.2) Albumin 4.2 gm/dl (3.4-5.0) Globulin 3.6 gm/dl (2.5-4.0) Albumin/Globulin Ratio 1.2 (0.9-2) Date/Time Source Procedure Growth Status 08/27/16 14:27 Cervix Swab Trichomonas Preparation - Final Complete Labs reviewed by ED physician. Medications Administered Medications (Trade) Dose Ordered Sig/July Route Start Time Stop Time Status Last Admin Dose Admin Ceftriaxone Sodium (Rocephin Inj) 1 gm NOW STAT IV 08/27/16 12:12 08/27/16 12:22 DC 08/27/16 12:12 1 GM Sodium Chloride 1,000 ml @ 999 mls/hr Q1H1M STAT IV 08/27/16 12:12 08/27/16 13:12 DC 08/27/16 12:12 999 MLS/HR Ketorolac Tromethamine (Toradol Inj) 30 mg NOW STAT IV 08/27/16 12:12 08/27/16 12:22 DC 08/27/16 12:12 30 MG Hydromorphone HCl (Dilaudid Inj) 1 mg NOW STAT IV 08/27/16 12:12 08/27/16 12:22 DC 08/27/16 12:12 1 MG Ondansetron HCl (Zofran Inj) 4 mg NOW STAT IV 08/27/16 12:12 08/27/16 12:22 DC 08/27/16 12:12 4 MG Potassium Chloride (Klor-Con M10) 70 meq NOW STAT PO 08/27/16 12:26 08/27/16 12:27 DC 08/27/16 12:26 70 MEQ Azithromycin (Zithromax Tab) 1,000 mg NOW STAT PO 08/27/16 14:28 08/27/16 14:30 DC 08/27/16 14:28 1,000 MG Doxycycline Hyclate (Vibramycin Cap) 100 mg ONE STAT PO 08/27/16 14:28 08/27/16 14:30 DC 08/27/16 14:28 100 MG Metronidazole (Flagyl Tab) 500 mg NOW STAT PO 08/27/16 14:28 08/27/16 14:30 DC 08/27/16 14:28 500 MG Procedure IUD removed during pelvic exam ED Course 1208: Past medical records reviewed. The patient was evaluated in room C11B. A complete history and physical examination was performed. 1212: Ordered Zofran Inj 4 mg IV, Dilaudid Inj 1 mg IV, Toradol Inj 30 mg IV, NSS 1000 ml @ 999 mls/hr IV, Rocephin Inj 1 gm IV. 1226: Ordered Klor-Con M10 70 meq PO. 1254: I reevaluated and updated the patient. 1420: I performed a pelvic exam on the patient and removed the IUD. There is blood in the vaginal vault. It is nontender. The patient verbally expressed understanding and agreement of the treatment plan. The patient will be discharged. 1428: Ordered Flagyl Tab 500 mg PO, Vibramycin Cap 100 mg PO, Zithromax Tab 1000 mg. Medical Decision Differential diagnosis: Etiologies such as appendicitis, diverticulitis, PUD, biliary pathology, UTI, pancreatitis, obstruction, mesenteric ischemia, aortic pathology, infections, inflammatory bowel disease, renal colic, as well as others were entertained. Medication Reconciliation: I attest that I have personally reviewed the patient' s current medication list Blood Pressure Screening: Patient was found to have normal blood pressure on screening and does not require follow up. This is a 25-year-old female who presents emergency department complaining of vaginal bleeding. The patient has a large amount of blood in her urine and therefore she was started on Rocephin and given azithromycin. She has a normal ultrasound of her kidneys as well as her ovaries and uterus. The patient is requesting her IUD be removed. I recommended that the patient see OB for this however she is insisting therefore the IUD was removed during pelvic exam. Patient will be continued on doxycycline as well as Flagyl at home pending follow-up with obstetrics. Patient is not and I believe is safe enough to be discharged. Patient was in agreement with the treatment plan. Impression Primary Impression: Encounter for IUD removal Additional Impression: Vaginal bleeding Scribe Attestation The scribe's documentation has been prepared under my direction and personally reviewed by me in its entirety. I confirm that the note above accurately reflects all work, treatment, procedures, and medical decision making performed by me. Departure Information Dispostion Home / Self-Care Prescriptions Ondasetron Odt (ZOFRAN ODT) 4 Mg Tab 4 MG SL Q6H for Nausea, #6 TAB Prov: Donte Nash MD 08/27/16 Oxycodone/Acetaminophen 5MG/325MG (PERCOCET 5MG/325MG) Tab 1-2 TAB PO Q4H Y for Pain, #14 TAB Prov: Donte Nash MD 08/27/16 Metronidazole (Flagyl) 500 Mg Tab 500 MG PO BID for 14 Days, #28 TAB Prov: Donte Nash MD 08/27/16 Doxycycline Monohydrate (Monodox) 100 Mg Cap 100 MG PO BID for 14 Days, #28 CAP Prov: Donte Nash MD 08/27/16 Referrals No Doctor, Assigned (PCP) Saul Scruggs MD Owusu, Samuel, MD Forms HOME CARE DOCUMENTATION FORM, IMPORTANT VISIT INFORMATION, School Instructions, Work Instructions Patient Instructions ED Bleed Irregular Vaginal, My [facility] Additional Instructions Your IUD has been removed Need follow up with Dr Denney's group You received narcotic or benzodiazepene medication while in the emergency room today. Do not drive, operate heavy machinery, or drink alcohol under the influence of this medication. Take 600 mg Ibuprofen every 6 hours Take Percocet for breakthrough pain Culture results are usually available in approx 48 hours You have been examined and treated today on an emergency basis only. This is not a substitute for, or an effort to provide, complete comprehensive medical care. It is impossible to recognize and treat all injuries or illnesses in a single emergency department visit. It is therefore important that you follow up closely with Dr Scruggs. Call as soon as possible for an appointment. Thank you for your time and consideration. I look forward to speaking with you again soon. Please don't hesitate to call us if you have any questions. Problem Qualifiers
[2016-08-27] MEDS ORDERED: POTASSIUM CHLORIDE 10 MEQ TABCR PO STA (12:26)
[2016-08-27 12:52] LABS: MANUAL MICROSCOPIC REQUIRED? YES; URINE APPEARANCE SL CLOUDY (CLEAR); URINE NITRITE NEG (NEG); URINE PH 6.5 (4.5-7.5); URINE SPECIFIC GRAVITY <= 1.005 (1.000-1.030); UROBILINOGEN NEG (NEG)
[2016-08-27 12:57] LABS: REVIEW REQ? NO; URINE COLOR RED
[2016-08-27 12:58] LABS: URINE BILIRUBIN NEG (NEG)
[2016-08-27 13:14] LABS: URINE RBC >30 /hpf (0-4); URINE WBC >30 /hpf (0-5)
[2016-08-27 13:15] LABS: URINE BACTERIA 1+ (NEG); ZZUR CULT IF INDIC CLEAN CATCH YES
--- NOTE | 2016-08-27 13:49 | DIAGNOSTIC IMAGING REPORT ---
EXAMINATION: RENAL ULTRASOUND CLINICAL HISTORY: Left flank pain COMPARISON STUDY: April 21, 2016 FINDINGS: The right kidney measures 10.7 cm. The left kidney measures 11.8 cm. There is no evidence of hydronephrosis. There are no renal masses. The bladder was incompletely distended. The left ureteral jet was visualized, the right ureteral jet was not visualized. Borderline bladder wall thickening may be secondary to incomplete distended bladder. IMPRESSION : 1. No renal masses identified. No evidence of hydronephrosis 2. Borderline bladder wall thickening possibly secondary to incomplete bladder distention Electronically signed by: Prosper Reich M.D. 08/27/2016 1:47 PM Dictated Date/Time: 08/27/2016 1:45 PM
--- NOTE | 2016-08-27 13:53 | DIAGNOSTIC IMAGING REPORT ---
KUB CLINICAL HISTORY: Pt c/o left sided flank pain flank pain COMPARISON STUDY: 08/03/2014 FINDINGS: Nonobstructive bowel pattern. Intrauterine device seen centrally within the soft tissue pelvis. This is unchanged from the prior exam. No new or interval findings. IMPRESSION: Negative study. Intrauterine device unchanged in position within the soft tissue pelvis compared to the prior study. Electronically signed by: Rodriguez Pinedo M.D. 08/27/2016 1:52 PM Dictated Date/Time: 08/27/2016 1:50 PM
--- NOTE | 2016-08-27 13:57 | DIAGNOSTIC IMAGING REPORT ---
PELVIC COMPLETE NON OB HISTORY: 25 rolled female presents with acute left-sided flank pain. COMPARISON: Renal ultrasound of same day, CT abdomen and pelvis 04/25/2016. TECHNIQUE: Multiple real-time sonographic images of the deep pelvic structures were obtained transabdominally and transvaginally assessing grayscale appearance, color and spectral flow. FINDINGS: Transabdominal: Anteflexed uterus measures 9.4 x 4.9 x 5.6 cm. Intrauterine device appears to be appropriately located in the central fundal uterus. The right ovary measures 2.9 x 1.6 x 2.7 cm. Normal-appearing arterial inflow is documented within the right ovary. The left ovary measures 4.2 x 2.2 x 3.2 cm and appears to be within normal limits with normal truant flow documented. Transvaginal: Uterus measures 9.3 x 4.1 x 6.9 cm. Endometrium measures 0.5 cm. The right ovary measures 3.3 x 1.5 x 2.6 cm and is within normal limits. Left adnexum is partially obscured by bowel gas with the left ovary measures 3.4 x 1.5 x 2.7 cm. There is trace free fluid within the cul-de-sac, likely physiologic. IMPRESSION: 1. Unremarkable sonographic appearance of the uterus and ovaries without evidence of torsion. 2. IUD in situ. 3. Trace free pelvic fluid, likely physiologic. Electronically signed by: Dennis Chase 08/27/2016 1:56 PM Dictated Date/Time: 08/27/2016 1:45 PM
[2016-08-27] MEDS ORDERED: DOXYCYCLINE HYCLATE 100 MG CAP PO STA (14:28)
[2016-08-27] MEDS ORDERED: METRONIDAZOLE 250 MG TAB PO STA (14:28)
[2016-08-27] MEDS ORDERED: AZITHROMYCIN 250 MG TAB PO STA (14:28)
[2016-08-27] MEDS ORDERED: OXYC-57 PO (14:30)
[2016-08-27] MEDS ORDERED: DOXY100C76 PO (14:30)
[2016-08-27] MEDS ORDERED: METR-163 PO (14:30)
[2016-08-27] MEDS ORDERED: ONDA4TAB10 SL (15:00)
[2016-08-27 15:10] VITALS: BP 132/75; PULSE 82; O2SAT 98
[2016-08-30 00:44] LABS: CHLAMYDIA TRACH RNA*** NOT DETECTED (NOT DETECTED); GC (NEIS GONORRHOEAE)RNA** NOT DETECTED (NOT DETECTED)
== END 2016-08-27 15:11 | disposition home or self-care (01) ==
LOC: C.EDB 10:42 → C.EDC 15:11
DX: Z30.432 Encounter for removal of intrauterine contraceptive device (principal); N93.9 Abnormal uterine and vaginal bleeding, unspecified

== ENCOUNTER → 2016-08-29 | Outpatient (CLI) | payer OTHER ==
[~2016-08-29] MED LIST changes: +BCPILLS PO; -CIPR-255 PO; +DOXY100C76 PO; -HYDR-5688 PO; +METR-163 PO; +ONDA4TAB10 SL; +OXYC-57 PO
== END | disposition home or self-care (01) ==
LOC: C.PAPS 10:25
PROVIDERS: ATTEND Physician Assistant
DX: N39.0 Urinary tract infection, site not specified (principal); Z12.4 Encounter for screening for malignant neoplasm of cervix

== ENCOUNTER → 2016-09-03 | Outpatient (CLI) | payer OTHER | END | disposition home or self-care (01) | LOC: C.LAB1850 12:28 | PROVIDERS: ATTEND Physician Assistant | DX: N92.6 Irregular menstruation, unspecified (principal) ==

== ENCOUNTER 2016-11-10 13:29 | Emergency (ER) | payer OTHER ==
[~2016-11-10] VITALS: Ht 160 cm; Wt 54.3 kg
[~2016-11-10 13:29] MED LIST changes: -BCPILLS PO; -DOXY100C76 PO; -METR-163 PO
[2016-11-10 13:35] VITALS: TEMP 36.8; Ht 160 cm; Wt 54.3 kg
[2016-11-10] MEDS ORDERED: SODIUM CHLORIDE 0.9% 1000ML 1,000 ML IV STA (14:12)
[2016-11-10] MEDS ORDERED: BCPILLS PO (14:20)
--- NOTE | 2016-11-10 14:25 | EMERGENCY ROOM VISIT NOTE ---
History Report prepared by Summer: Waylon Turk Under the Supervision of: Dr. Geovanna Raman D.O. First contact with patient: 13:59 Chief Complaint: VAGINAL BLEEDING Stated Complaint: VAGINAL BLEEDING, LOWER BACK/ADB PAIN, FEVER/CHILL History of Present Illness The patient is a 26 year old female who presents to the Emergency Room with complaints of intermittent vaginal bleeding that started a year ago. She rates her discomfort as a 9/10 in severity. She describes that bleeding as "clumpy" and irregular. The patient states that she started an IUD in 2013 and did not have a period for six months. She reports that after six months she started to have irregular menstrual cycles with cycles occurring at random weeks. The patient states that she had the IUD taken out on August 27 due to her concern of her heavy and irregular vaginal bleeding. She reports that she was put on lo- estrin following the removal of the IUD and admits she has been on it since. The patient states that since the removal, she has been vaginally bleeding three weeks out of a month every month. She reports that she has been experiencing lightheadedness, dizziness, nausea, tingling, lower back pain, and severe abdominal pain since the removal, as well. The patient states that her lower back feels as if "it is on fire" and that "cracking may fix it". She reports that her lower back pain is worsened with touching. The patient states that she called [facility] SERVICE TECHNICIAN this morning and scheduled an appointment for tomorrow since there were no openings today. She reports that she went to work today and started severely vaginally bleeding causing her to go home to change. The patient reports that she went back to work and started to experience dizziness and shaking. She states that she felt unsafe to drive her car, but did regardless. The patient states that her discomfort of symptoms caused her to report to the ED. She reports that she took Advil, Aleve, Motrin, and Tylenol, but denies any relief of symptoms. She admits that she was here in August and had ultrasounds, catscans, and x-rays done but saw no pertinent results. The patient also reports that she recently saw a urologist on October 15 who saw no pertinent results. She also states that she recently saw her PCP who checked her thyroid, which was normal. The patient states that she normally has heavy periods, but denies any irregular periods until the IUD. She states that she believes she drinks enough water a day with about 3-5 bottles a day. She admits to having three children, which were all vaginally delivered. The patient denies any problems during and after labor and reports that her labor pains were in her abdomen and back. No new sexual partners. She states that she has a history of chronic constipation. She admits that she had Chlamydia, which was treated in 2008, and reports that her visit in August showed a negative test result for STDs. The patient states that her mom had a hysterectomy at the age of 27 due to her history of endometriosis. She is concerned she may have the same. States had US in August which was normal. Source of History: patient Onset: a year ago Position: other (vaginal) Symptom Intensity: 11/02 Quality: other (clumpy, irregular bleeding) Timing: intermittent Associated Symptoms: + nausea, + abdominal pain, + back pain Review of Systems See HPI for pertinent positives & negatives. A total of 10 systems reviewed and were otherwise negative. Past Medical & Surgical Medical Problems: (1) Vaginal delivery Family History Endometriosis Social History Smoking Status: Current Every Day Smoker Drug Use: none Marital Status: single Housing Status: lives with family Current/Historical Medications Scheduled Control Pills ( Control Pills), 1 TAB PO DAILY Sertraline (Zoloft), 50 MG PO DAILY Allergies Coded Allergies: Latex1 -Allergic Contact Dermititis (Verified Allergy, Intermediate, CONDOMS = RASH, 04/25/16) Penicillins (Verified Allergy, Unknown, 04/25/16) Physical Exam Vital Signs Date Time Temp Pulse Resp B/P (MAP) Pulse Ox O2 Delivery O2 Flow Rate FiO2 11/10/16 16:18 65 16 115/72 98 11/10/16 14:35 71 16 109/64 98 Room Air 77 108/59 66 102/70 11/10/16 13:35 36.8 88 20 119/81 99 Room Air Physical Exam GENERAL: alert, well appearing, well nourished, no distress, non-toxic EYE EXAM: normal conjunctiva, PERRL and EOM's grossly intact OROPHARYNX: no exudate, no erythema, lips, buccal mucosa, and tongue normal and mucous membranes are moist NECK: supple, no nuchal rigidity, no adenopathy, non-tender LUNGS: Clear to auscultation. Normal chest wall mechanics HEART: no murmurs, S1 normal and S2 normal ABDOMEN: abdomen soft, mild suprapubic tenderness, normo-active bowel sounds, no masses, no rebound or guarding. BACK: Back is symmetrical on inspection and there is no deformity, no midline tenderness, no CVA tenderness. Mild lower back tenderness. SKIN: no rashes and no bruising UPPER EXTREMITIES: upper extremities are grossly normal. LOWER EXTREMITIES: No pitting edema. NEURO EXAM: Normal sensorium, cranial nerves II-XII grossly intact, normal speech, no gross weakness of arms, no gross weakness of legs. Gross sensation intact. Medical Decision & Procedures Laboratory Results 11/10/16 14:20 Red Blood Count 4.03, Mean Corpuscular Volume 90.8, Mean Corpuscular Hemoglobin 31.5, Mean Corpuscular Hemoglobin Concent 34.7, Mean Platelet Volume 10.5, Neutrophils (%) (Auto) 54.3, Lymphocytes (%) (Auto) 37.0, Monocytes (%) (Auto) 7.3, Eosinophils (%) (Auto) 0.8, Basophils (%) (Auto) 0.3, Neutrophils # (Auto) 3.95, Lymphocytes # (Auto) 2.69, Monocytes # (Auto) 0.53, Eosinophils # (Auto) 0.06, Basophils # (Auto) 0.02 11/10/16 14:20 Test 11/10/16 14:20 11/10/16 14:37 White Blood Count 7.27 K/uL (4.8-10.8) Red Blood Count 4.03 M/uL (4.2-5.4) Hemoglobin 12.7 g/dL (12.0-16.0) Hematocrit 36.6 % (37-47) Mean Corpuscular Volume 90.8 fL (80-100) Mean Corpuscular Hemoglobin 31.5 pg (25-34) Mean Corpuscular Hemoglobin Concent 34.7 g/dl (32-36) Platelet Count 220 K/uL (130-400) Mean Platelet Volume 10.5 fL (7.4-10.4) Neutrophils (%) (Auto) 54.3 % Lymphocytes (%) (Auto) 37.0 % Monocytes (%) (Auto) 7.3 % Eosinophils (%) (Auto) 0.8 % Basophils (%) (Auto) 0.3 % Neutrophils # (Auto) 3.95 K/uL (1.4-6.5) Lymphocytes # (Auto) 2.69 K/uL (1.2-3.4) Monocytes # (Auto) 0.53 K/uL (0.11-0.59) Eosinophils # (Auto) 0.06 K/uL (0-0.5) Basophils # (Auto) 0.02 K/uL (0-0.2) RDW Standard Deviation 41.4 fL (36.4-46.3) RDW Coefficient of Variation 12.4 % (11.5-14.5) Immature Granulocyte % (Auto) 0.3 % Immature Granulocyte # (Auto) 0.02 K/uL (0.00-0.02) Prothrombin Time 10.3 SECONDS (9.0-12.0) Prothromb Time International Ratio 1.0 (0.9-1.1) Anion Gap 5.0 mmol/L (3-11) Est Creatinine Clear Calc Drug Dose 118.4 ml/min Estimated GFR () 145.6 Estimated GFR (Non- 125.6 BUN/Creatinine Ratio 11.5 (10-20) Calcium Level 9.0 mg/dl (8.5-10.1) Magnesium Level 2.2 mg/dl (1.8-2.4) Thyroid Stimulating Hormone (TSH) 0.716 uIu/ml (0.300-4.500) Human Chorionic Gonadotropin, Qual NEG (NEG) Urine Color YELLOW Urine Appearance CLEAR (CLEAR) Urine pH 6.5 (4.5-7.5) Urine Specific [place] 1.007 (1.000-1.030) Urine Protein NEG (NEG) Urine Glucose (UA) NEG (NEG) Urine Ketones NEG (NEG) Urine Occult Blood 2+ (NEG) Urine Nitrite NEG (NEG) Urine Bilirubin NEG (NEG) Urine Urobilinogen NEG (NEG) Urine Leukocyte Esterase NEG (NEG) Urine WBC (Auto) 1-5 /hpf (0-5) Urine RBC (Auto) 5-10 /hpf (0-4) Urine Hyaline Casts (Auto) 0 /lpf (0-5) Urine Epithelial Cells (Auto) 5-10 /lpf (0-5) Urine Bacteria (Auto) NEG (NEG) Laboratory results per my review. Medications Administered Medications (Trade) Dose Ordered Sig/July Route Start Time Stop Time Status Last Admin Dose Admin Sodium Chloride 1,000 ml @ 999 mls/hr Q1H1M STAT IV 11/10/16 14:12 11/10/16 15:12 DC 11/10/16 14:12 999 MLS/HR Tramadol HCl (Ultram Home Pack) 1 homepack UD ONCE PO 11/10/16 16:15 11/10/16 16:16 DC 11/10/16 16:15 1 HOMEPACK ECG Indication: other (dizziness) Rate (beats per minute): 67 Rhythm: normal sinus Findings: no acute ischemic change, no ectopy, other (normal axis, normal intervals) ED Course 1403: The patient was evaluated in room B08. A complete history and physical exam was performed. 1412: Ordered Sodium Chloride 1000 ml @ 999 mls/hr IV. 1421: I reviewed the patient's EMR which showed an ultrasound from August of this year with normal ovaries, uterus, and endometrium. 1530 I reevaluated the patient and she was asleep when she walked in. I updated her on her results and treatment plan. She reports she is going to keep her OB/ [facility] [facility] appointment tomorrow. The patient is ready for discharge. Medical Decision The differential diagnosis includes etiologies such as ectopic , dysfunction uterine bleeding, bleeding dyscrasia, trauma, infection, as well as others were entertained. Patient with chronic issues of dysfunctional uterine bleeding. Unclear etiology. Patient's IUD removed in August and patient continued to have prolonged an abnormal bleeding. was negative. Doubt TOA/PID/ torsion. Patient with normal pelvic ultrasound at the time of IUD removal. Patient states had outpatient labs by her PCP which did include a check of her thyroid level. States this was all reported to her as normal. Patient states slightly dizzy, however H&H normal. Feel there is some component of anxiety related to some of her symptoms. Patient with abdominal and back pain also, although improved here following IV hydration. Patient with [facility] SERV[facility] TECHNICIAN follow-up rescheduled for tomorrow. Patient not orthostatic, vital signs otherwise stable. Doubt any additional occult bleeding from another source. Discussed with patient symptoms to watch and return for, she verbalized understanding was agreeable with plan. Medication Reconcilliation Current Medication List: was personally reviewed by me Blood Pressure Screening Patient's blood pressure: Normal blood pressure Impression Primary Impression: Dysfunctional uterine bleeding Scribe Attestation The scribe's documentation has been prepared under my direction and personally reviewed by me in its entirety. I confirm that the note above accurately reflects all work, treatment, procedures, and medical decision making performed by me. Departure Information Dispostion Home / Self-Care Referrals Saul Scruggs MD (PCP) Forms HOME CARE DOCUMENTATION FORM, IMPORTANT VISIT INFORMATION, WORK / SCHOOL INSTRUCTIONS Patient Instructions [facility] Additional Instructions Please keep your appointment tomorrow with CNC SERVICE TECHNICIAN. Please continue to drink plenty of fluids. You may eat normally. If you have any worsening dizziness or pass out, develop worsening pain, fevers, vomiting, or you've any other new concerns, please return the emergency room.
[2016-11-10 14:36] LABS: BASO % 0.3 %; BASO ABS # 0.02 K/uL (0-0.2); COMPLETE YES; EOS % 0.8 %; HEMATOCRIT 36.6 % (37-47); IG% 0.3 %; LYMPH ABS # 2.69 K/uL (1.2-3.4); MEAN CELL VOLUME 90.8 fL (80-100); MEAN CORPUSCULAR HEMOGLOBIN 31.5 pg (25-34); MEAN CORPUSCULAR HGB CONC 34.7 g/dl (32-36); MEAN PLATELET VOLUME 10.5 fL (7.4-10.4); MONO % 7.3 %; NEUT % 54.3 %; PLATELET COUNT 220 K/uL (130-400); RED BLOOD COUNT 4.03 M/uL (4.2-5.4); WHITE BLOOD COUNT 7.27 K/uL (4.8-10.8)
[2016-11-10 14:45] LABS: PROTHROMBIN TIME (PATIENT) 10.3 SECONDS (9.0-12.0)
[2016-11-10 14:51] LABS: MANUAL MICROSCOPIC REQUIRED? NO; REVIEW REQ? NO; URINE APPEARANCE CLEAR (CLEAR); URINE BILIRUBIN NEG (NEG); URINE COLOR YELLOW; URINE NITRITE NEG (NEG); URINE PH 6.5 (4.5-7.5); URINE SPECIFIC GRAVITY 1.007 (1.000-1.030); UROBILINOGEN NEG (NEG); ZZUR CULT IF INDIC CLEAN CATCH NO
[2016-11-10 14:53] LABS: BUN/CREATININE RATIO 11.5 (10-20); CREATININE 0.59 mg/dl (0.60-1.20); MAGNESIUM 2.2 mg/dl (1.8-2.4); POTASSIUM 3.5 mmol/L (3.5-5.1)
[2016-11-10 14:58] LABS: PREG INTERNAL NEGATIVE QC NEG CLEAR BACKGROUND; PREG INTERNAL POSITIVE QC POS CONTROL LINE
[2016-11-10 15:04] LABS: THYROID STIMULATING HORMONE 0.716 uIu/ml (0.300-4.500)
[2016-11-10] MEDS ORDERED: TRAMADOL HCL 50 MG HOME PACK ONE (16:14)
[2016-11-10] MEDS ORDERED: TRAMADOL HCL 50 MG HOME PACK PO ONE (16:15)
[2016-11-10 16:18] VITALS: BP 115/72; PULSE 65; O2SAT 98
== END 2016-11-10 16:18 | disposition home or self-care (01) ==
LOC: C.EDB 13:30
DX: N93.8 Other specified abnormal uterine and vaginal bleeding (principal); F17.200 Nicotine dependence, unspecified, uncomplicated; Z79.899 Other long term (current) drug therapy; Z88.0 Allergy status to penicillin; Z91.040 Latex allergy status

== ENCOUNTER → 2016-11-11 | Outpatient (CLI) | payer OTHER ==
[~2016-11-11] MED LIST changes: +BCPILLS PO; -ONDA4TAB10 SL; -OXYC-57 PO
[2016-11-15 13:51] LABS: CHLAMYDIA TRACH RNA*** NOT DETECTED (NOT DETECTED); GC (NEIS GONORRHOEAE)RNA** NOT DETECTED (NOT DETECTED); TRICHOMONAS VAGINALIS RNA** NOT DETECTED (NOT DETECTED)
== END | disposition home or self-care (01) ==
LOC: C.LABSPEC 17:51
PROVIDERS: ATTEND Physician Assistant
DX: N92.6 Irregular menstruation, unspecified (principal)

== ENCOUNTER 2017-03-16 11:49 | Emergency (ER) | payer OTHER ==
[~2017-03-16] VITALS: Ht 160 cm; Wt 54.7 kg
[2017-03-16 11:55] VITALS: TEMP 36.8; Ht 160 cm; Wt 54.7 kg
[2017-03-16] MEDS ORDERED: ACETAMINOPHEN 500 MG TAB PO STA (12:14)
[2017-03-16] MEDS ORDERED: ONDANSETRON 4MG OD TAB PO ONE (12:15)
--- NOTE | 2017-03-16 12:44 | DIAGNOSTIC IMAGING REPORT ---
CT SCAN OF THE BRAIN WITHOUT IV CONTRAST CLINICAL HISTORY: Head injury. COMPARISON STUDY: No priors. TECHNIQUE: Unenhanced axial CT scan of the brain is performed from the vertex to the skull base. A dose lowering technique was utilized adhering to the principles of ALARA. CT DOSE: 537.48 mGy.cm FINDINGS: Brain parenchyma: The brain parenchyma is normal in appearance. There is no hemorrhage, mass effect, or evidence of acute territorial ischemia by CT criteria. Jones-white matter is preserved. No extra-axial fluid collection is seen. Ventricles, sulci, cisterns: Normal in configuration. Intracranial vasculature: The visualized intracranial vasculature at the skull base is normal in appearance. Calvarium: There is no depressed calvarial fracture. Sinuses and mastoids: The visualized paranasal sinuses are clear. The mastoid air cells are well pneumatized. Orbits: The bony orbits are grossly intact. IMPRESSION: No acute intracranial abnormality. Electronically signed by: Ventura Almonte M.D. 03/16/2017 12:43 PM Dictated Date/Time: 03/16/2017 12:42 PM
[2017-03-16 13:35] VITALS: BP 113/71; PULSE 66; O2SAT 98
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
== END 2017-03-16 13:36 | disposition home or self-care (01) ==
LOC: C.EDB 11:51 → C.EDD 13:36
DX: S06.0X1A Concussion with loss of consciousness of 30 minutes or less, initial encounter (principal); V78.6XXA Passenger on bus injured in noncollision transport accident in traffic accident, initial encounter; Y92.410 Unspecified street and highway as the place of occurrence of the external cause; F17.210 Nicotine dependence, cigarettes, uncomplicated; Z79.899 Other long term (current) drug therapy

== ENCOUNTER → 2017-03-27 | Outpatient (CLI) | payer OTHER ==
--- NOTE | 2017-03-27 09:25 | DIAGNOSTIC IMAGING REPORT ---
Brain MRI WITHOUT CONTRAST HISTORY: CONCUSSION W/ LOSS OF CONSCIOUSNESS 30 MIN OR LESS TECHNIQUE: Multiplanar multisequence MRI of the brain was performed without the use of contrast. COMPARISON STUDY: Head CT 03/16/2017. FINDINGS: There are no areas of restricted diffusion to suggest acute infarction. The cerebellar tonsils are positioned up to 5 mm below the level of the foramen magnum. This is consistent with cerebellar tonsillar ectopia. No significant mass effect along the brainstem. Otherwise, the midline structures are intact. Mild mucosal thickening within the ethmoid air cells and maxillary sinuses. The mastoid air cells are clear. The ventricles and sulci are within normal limits for age. There is no mass, hematoma, midline shift. The major vascular flow-voids at the skull base are well maintained. IMPRESSION: 1. No acute intracranial abnormality. 2. Mild cerebellar tonsillar ectopia. Electronically signed by: Bonilla Dubose M.D. 03/27/2017 9:24 AM Dictated Date/Time: 03/27/2017 9:14 AM
== END | disposition home or self-care (01) ==
LOC: C.MRI 08:21
PROVIDERS: ATTEND Internal Medicine
DX: S06.0X1A Concussion with loss of consciousness of 30 minutes or less, initial encounter (principal); X58.XXXA Exposure to other specified factors, initial encounter; Q04.8 Other specified congenital malformations of brain

== ENCOUNTER 2020-04-21 12:17 | Inpatient (IN) ==
--- OUTSIDE RECORDS SUMMARY | 2020-04-21 12:20 | External Medical Summary | Continuity of Care Document ---
:1990 Author Name Marcellus Hager Address Unavailable Unavailable , Care Team Providers Name Role Phone Unavailable Unavailable Unavailable [email or web address] Unavailable Unavailable Unavailable Unavailable Unavailable Problems PCOS (polycystic ovarian syndrome) (256.4) (E28.2) Bacterial vaginosis (616.10) (N76.0) Pap smear for cervical cancer screening (V76.2) (Z12.4) Encounter for contraceptive management (V25.9) (Z30.9) Depression (311) (F32.9) Anemia (285.9) (D64.9) UTI (urinary tract infection) (599.0) (N39.0) Adnexal tenderness, right (625.9) (R10.2) Irregular bleeding (626.4) (N92.6) Allergies and Adverse Reactions Penicillins (Allergy) Medications 03/14 1-20 MG-MCG Oral Tablet; TAKE 1 TABLET B Y MOUTH EVERY DAY TAYLA Bermudez Start: 29-Aug-2016 Quantity: 84 Refills: 1 Zoloft 50 MG Oral Tablet , M.D. Refills: 0 metroNIDAZOLE 0.75 % Vaginal Gel; INSERT 1 APPLICATORFUL INTRAVAGINALLY AT BEDTIME NIGHTLY. TAYLA Bermudez Start: 14-Nov-2016 Quantity: 1 70 GM Tube Refills: 0 Procedures History of wisdom tooth extraction Statu s: Completed Immunizations Immunizations not documented Family History Grandmother Family history of type 2 diabetes mellitus (V18.0) (Z83.3) S tatus: Active Mother Family history of endometriosis (V19.8) (Z84.2) Status: Acti ve Social History - Smoking Status Smoker Plan of Treatment Planned Observations Planned Goals not documented Results No Known Results Results not documented
[2020-04-21] MEDS ORDERED: BETAMETH SOD PHOS/ACETATE IA 6 MG/ML IM STA (12:51)
[2020-04-21] MEDS ORDERED: OXYTOCIN 30 UNITS/500ML NSS ONE (12:52)
[2020-04-21] MEDS ORDERED: BETAMETH SOD PHOS/ACETATE IA 6 MG/ML ONE (12:54)
[2020-04-21] MEDS ORDERED: OXYTOCIN 30 UNITS/500 ML BAG IV PRN ×2 (13:00→13:58)
[2020-04-21] MEDS ORDERED: LACTATED RINGER'S 1,000 ML IV PRN (13:00)
[2020-04-21 13:13] LABS: Hematocrit (blood only) 33.4 % (37-47); Hemoglobin 11.5 g/dL (12.0-16.0); Mean Corpuscular Hemoglobin 31.4 pg (25-34); Mean Corpuscular Hgb Conc 34.4 g/dL (32-36); Mean Corpuscular Volume 91.3 fL (80-100); Mean Platelet Volume 11.1 fL (7.4-10.4); Platelet Count 247 K/uL (130-400); RDW Coefficient of Variation 13.2 % (11.5-14.5); RDW Standard Deviation 43.8 fL (36.4-46.3); Red Blood Count 3.66 M/uL (4.2-5.4); White Blood Count 22.96 K/uL (4.8-10.8)
[2020-04-21] MEDS ORDERED: VANCOMYCIN HCL 1,000 MG in SODIUM CHLORIDE 0.9% 250 ML IV PRN (13:15)
[2020-04-21 13:45] LABS: Amphetamines+Metham, Urine Neg (Neg); Barbiturates, Urine Neg (Neg); Benzodiazepine, Urine Neg (Neg); Cocaine, Urine Neg (Neg); MDMA (Ecstacy), Urine Neg (Neg); Methadone, Urine Neg (Neg); Opiate, Urine Neg (Neg); Phencyclidine, Urine Neg (Neg)
[2020-04-21 13:45] LABS: Alanine Aminotransferase 13 U/L (12-78); Albumin Level 2.7 gm/dl (3.4-5.0); Aspartate Aminotransferase 10 U/L (15-37); BUN Creatinine Ratio 16.4 (10-20); Bilirubin Direct < 0.1 mg/dl (0-0.2); Blood Urea Nitrogen 8 mg/dl (7-18); Calcium 8.6 mg/dl (8.5-10.1); Carbon Dioxide 24 mmol/L (21-32); Chloride 108 mmol/L (98-107); Creatinine Clr Calc Pharmacy 165.6 ml/min; Est GFR (African American) > 150.0; Est GFR (Non-African American) 133.5; Glucose 82 mg/dl (70-99); Potassium 3.7 mmol/L (3.5-5.1); Sodium 139 mmol/L (136-145)
[2020-04-21 13:47] LABS: Albumin Globulin Ratio 0.6 (0.9-2); Alkaline Phosphatase 186 U/L (45-117); Bilirubin,Total 0.3 mg/dl (0.2-1); Globulin 4.4 gm/dl (2.5-4.0); Total Protein 7.1 gm/dl (6.4-8.2)
[2020-04-21] MEDS ORDERED: ACETAMINOPHEN W/CODEINE #3 1 TAB PO PRN (13:58)
[2020-04-21] MEDS ORDERED: BENZOCAINE 20% AER SPR 82.5 GM CAN EXT PRN (13:58)
[2020-04-21] MEDS ORDERED: HYDROCORTISONE ACETATE 25 MG SUPP PR PRN (13:58)
[2020-04-21] MEDS ORDERED: METHYLERGONOVINE MALEATE 0.2 MG/ML AMP IM ONE (13:58)
[2020-04-21] MEDS ORDERED: miSOPROStoL 200 MCG TAB PR ONE (13:58)
[2020-04-21] MEDS ORDERED: bisacodyL 10 MG SUPP PR PRN (13:58)
[2020-04-21] MEDS ORDERED: DIPHTHERIA/TETANUS/PERTUSSIS 0.5 ML SYR/VIAL IM ONE (13:58)
[2020-04-21] MEDS ORDERED: ACETAMINOPHEN 325 MG TAB PO PRN (13:58)
[2020-04-21] MEDS ORDERED: IBUPROFEN 600 MG TAB PO PRN (13:58)
[2020-04-21] MEDS ORDERED: SUPERCREAM 0.870% 15 GM JAR EXT PRN (13:58)
[2020-04-21] MEDS ORDERED: LACTATED RINGER'S 1,000 ML IV SCH (14:00)
[2020-04-21] MEDS ORDERED: miSOPROStoL 200 MCG TAB ONE (14:11)
[2020-04-21] MEDS ORDERED: METHYLERGONOVINE MALEATE 0.2 MG/ML AMP ONE (14:11)
[2020-04-21 14:25] LABS: Base Excess Cord Venous Blood -1.1 mEq/L (-7.7-1.9); Cord Venous Blood HCO3 24 mmol/L (18.4-26.8); Cord Venous Blood PCO2 42 mmHg (30.4-57.2); Cord Venous Blood PO2 32 mmHg (14.1-43.3); Cord Venous Blood pH 7.38 (7.20-7.44); O2 Saturation Cord Venous Bld 74.2 % (<68)
[2020-04-21] MEDS: NICOTINE 7 MG/24 HR TDSY TD SCH (18:04)
[2020-04-21] MEDS: DOCUSATE SODIUM 100 MG CAP PO SCH (20:48)
--- NOTE | 2020-04-21 22:50 | Delivery Summary ---
DATE OF OPERATION: 04/21/2020 The patient is a 29-year-old who presented to labor and delivery this afternoon. The patient had 0 care. She presented to labor and delivery in labor. According to the patient and by LMP, she was supposed to be 32 weeks. On arrival to labor and delivery, heart tones were detected. A bedside ultrasound was performed and the pelvic exam showed she was 8 cm dilated with bulging membranes. She was admitted and given IV vancomycin for GBS prophylaxis and betamethasone steroid injection. The patient quickly went on to be fully dilated and had the urge to push. She went on to deliver a live . 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 There was meconium upon rupture of membranes and pediatric team was available. Details of the pediatric resuscitation is in the pediatric note. Cord blood and cord gases were obtained. Placenta was spontaneously delivered. Both were sent to pathology for pathological analysis. Inspection of the perineum shows no lacerations or tears. All instruments were removed from the vagina and accounted for x2 including sponges, needles and retractors. The patient is stable in the recovery room. I attest to the content of the Intraoperative Record and any orders documented therein. Any exception s are noted below.
[2020-04-22 06:32] LABS: Hematocrit (blood only) 34.5 % (37-47); Hemoglobin 11.5 g/dL (12.0-16.0); Mean Corpuscular Hemoglobin 30.7 pg (25-34); Mean Corpuscular Hgb Conc 33.3 g/dL (32-36); Mean Platelet Volume 11.8 fL (7.4-10.4); Platelet Count 258 K/uL (130-400); RDW Coefficient of Variation 13.3 % (11.5-14.5); RDW Standard Deviation 44.4 fL (36.4-46.3); Red Blood Count 3.75 M/uL (4.2-5.4)
[2020-04-22] MEDS ORDERED: FERROUS SULFATE 325 MG TAB PO SCH (08:00)
[2020-04-22] MEDS ORDERED: PRENATAL VITAMIN 1 TAB PO SCH (08:00)
[2020-04-22] MEDS: DOCUSATE SODIUM 100 MG CAP PO SCH (09:19)
[2020-04-22] MEDS: NICOTINE 7 MG/24 HR TDSY TD SCH (09:21)
--- NOTE | 2020-04-22 10:09 | Obstetrical Progress Note ---
Date of Service April 22, 2020 Assessment & Plan (1) Normal course: No care baby has gastroschisis Elevated WBC, afebrile hx of marijuana use labs ordered Results & Data ([facility]) Vital Signs (Past 12 Hours) Vital Signs Temp Pulse Resp BP 04/22/20 03:30 36.8 C 69 18 93/53 L 04/21/20 23:30 36.6 C 64 18 108/70
[2020-04-22 10:38] LABS: Basophils # (auto) 0.01 K/uL (0-0.2); Eosinophils # (auto) 0.02 K/uL (0-0.5); Eosinophils % (auto) 0.1 %; Hematocrit (blood only) 34.1 % (37-47); Hemoglobin 11.5 g/dL (12.0-16.0); Immature Granulocytes % (auto) 0.9 %; Lymphocytes # (auto) 2.59 K/uL (1.2-3.4); Lymphocytes % (auto) 11.5 %; Mean Corpuscular Volume 91.9 fL (80-100); Mean Platelet Volume 11.1 fL (7.4-10.4); Monocytes # (auto) 1.91 K/uL (0.11-0.59); Monocytes % (auto) 8.5 %; Neutrophils # (auto) 17.76 K/uL (1.4-6.5); Platelet Count 271 K/uL (130-400); RDW Coefficient of Variation 13.2 % (11.5-14.5); RDW Standard Deviation 43.8 fL (36.4-46.3); Red Blood Count 3.71 M/uL (4.2-5.4); White Blood Count 22.49 K/uL (4.8-10.8)
[2020-04-22 10:43] LABS: Mean Corpuscular Hgb Conc 33.7 g/dL (32-36)
--- NOTE | 2020-04-22 11:01 | XRay Report ---
XR chest 2V PA/lateral CLINICAL HISTORY: elevated WBC PP day1 COMPARISON STUDY: Chest radiograph October 20, 2015. FINDINGS: Lung volumes are normal. Lungs are clear. Apparent mild right lower lung airspace opacity i s likely due to overlying soft tissues. There is no pneumothorax or pleural effusion. Cardiac size is normal. Mediastinal contours are normal. There is no evidence for pulmonary edema. IMPRESSION: No acute cardiopulmonary findings. Apparent mild right lower lung airspace opacity which is likely due to overlying soft tissues. ACT 112: Negative or not required by law. Electronically signed by: Shaquille Cao M.D. 04/22/2020 11:00 AM
--- NOTE | 2020-04-22 11:49 | Progress Note ---
Date of Service April 22, 2020 Assessment & Plan Admission and Anticipated Discharge Date Admission Date: April 21, 2020 Subjective work up for elevated WBC done including CXR blood culx pending' discussed elv WBC with pt prt reports flu like symptoms last week and thinks that may be the course pt is threatening to sign out AMA want to go to NICU @ [place] to see baby disch with instructions to f/u in clinic Results & Data ([facility]) Vital Signs (Past 12 Hours) Vital Signs Temp Pulse Resp BP 04/22/20 03:30 36.8 C 69 18 93/53 L
[2020-04-22 11:54] LABS: Appearance Urine Cloudy (Clear); Bacteria Urine Automated 1+ (Negative); Bilirubin Urine Negative (Negative); Blood Urine 3+ (Negative); Color Urine Dark Yellow; Epithelial Cell Urine Auto >30 /lpf (0-5); Glucose Urine UA Negative (Negative); Ketones Urine Negative (Negative); Leukocyte Esterase Urine 2+ (Negative); Nitrite Urine Negative (Negative); Protein Urine 1+ (Negative); RBC Urine Automated >30 /hpf (0-4); Specific Gravity Urine 1.022 (1.000-1.030); Urobilinogen Urine Negative (Negative); WBC Urine Automated >30 /hpf (0-5)
[2020-04-22] MEDS ORDERED: bisacodyL 5 MG TABEC PO SCH (20:00)
[2020-04-25 00:52] LABS: Marijuana Quant, GCMS Urine 3210 ng/mL (<5)
--- NOTE | 2020-05-14 19:42 | History and Physical Report ---
DATE OF ADMISSION: 04/21/2020 HISTORY OF PRESENT ILLNESS: This is a 29-year-old , who presented to the Emergency Room. The patient had no care. On arrival to the Emergency Room, she was 34 weeks and 6 days , in labor. She was brought to labor and delivery where she was examined and found to be 8 cm with bulging membranes, in labor. The patient went on to deliver an infant. For details of delivery, see delivery note. The patient, as stated above, had no care. PAST MEDICAL HISTORY: The patient has history of substance abuse and vitamin D deficiency. PAST SURGICAL HISTORY: None. SOCIAL HISTORY: Substance abuse. FAMILY HISTORY: Noncontributory. ALLERGIES: THE PATIENT IS ALLERGIC TO PENICILLIN AND LATEX. PHYSICAL EXAMINATION: GENERAL: Well-developed, well-nourished white female in labor discomfort. VITAL SIGNS: On admission, blood pressure was 118/74, pulse was 98. HEART: S1, S2, regular rhythm and rate. LUNGS: Clear to auscultation bilaterally. ABDOMEN: Nontender, nondistended. Bedside ultrasound was done. PELVIC: As stated above, she was 8 cm, bulging membranes. EXTREMITIES: No cyanosis, clubbing or edema. LABORATORIES: Were ordered. ASSESSMENT AND PLAN: A 29-year-old 4, para 3, at 34 weeks and 6 days, in labor, no care. The patient is admitted, will be given steroids and antibiotics in anticipation of labor.
== END 2020-04-22 12:00 | disposition home or self-care (01) | DRG 806 ==
LOC: OPB 12:17 → 4S1 12:18 → 4S2 17:50

== ENCOUNTER 2021-08-23 18:24 | Inpatient (IN) ==
[2021-08-23] MEDS ORDERED: SODIUM CHLORIDE 0.9% 250 ML IV PRN ×2 (18:58→19:45)
[2021-08-23] MEDS ORDERED: LACTATED RINGER'S 1,000 ML IV PRN (18:58)
--- NOTE | 2021-08-23 19:08 | History & Physical Report ---
Date of Service August 23, 2021 Assessment & Plan (1) Medical marijuana use: (2) Smoker: (3) Active labor at term: Plan: anticipate normal delivery History of Present Illness Chief Complaint: labor Primary Care Provider: Saul Scruggs MD 30 F [id number] at 39 weeks admitted in active labor. Allergies Allergy/AdvReac Type Severity Reaction Status Date / Time Penicillins Allergy Severe Swelling Verified 08/23/21 19:13 of Lip/Tongue/Throat latex Allergy Intermediate CONDOMS = Verified 08/23/21 19:13 RASH Home Medications Medication Instructions Recorded Confirmed Type ascorbic acid (vitamin C) 500 mg 250 mg PO DAILY 07/23/21 08/14/21 History tablet (Vitamin C) docusate sodium 100 mg capsule 100 mg PO DAILY PRN 07/23/21 08/14/21 History ferrous sulfate 325 mg (65 mg 650 mg PO DAILY 07/23/21 08/14/21 History iron) tablet (iron) ondansetron HCl 4 mg tablet 4 mg PO Q12H PRN 07/23/21 08/14/21 History progesterone micronized 200 mg 200 mg VAGINAL HS 07/23/21 08/14/21 History capsule Patient History Medical History Medical marijuana use states card has expiration date of jan 2022 Smoker Substance abuse used marijuana while last used 04/19/20 Vitamin D deficiency took meds; stopped meds "long time ago" Surgical History History of dental surgery History of wisdom tooth extraction Social History Smoking Status: Current every day smoker Cigarettes Per Day: 5; Hx Alcohol Use: No Hx Substance Use: Yes Last Used Substance: Days (ago) Last Used Substance Other:: used 08/13/21 Substance Use Type Other:: medical marjuana card doesn't have card exp 01/30/22 Preferred Language: Singaporean Kitchen Utility Associate Required: No Beliefs That Will Affect Care: None marital status: Single Current Living Situation: Alone Current Living Situation Comment: lives with boyfriend Alexis and 3 other children Feels Safe at Home: Yes Assistive Devices: None OB History history PPH last delivery last [employer]IAN History chlamydia positive 01/31 Review of Systems All systems reviewed & are unremarkable except as noted in HPI & below Physical Exam Constitutional: WD/WN, vitals as above Eyes: PERRL, conjunctivae normal, anicteric sclerae Respiratory: normal respiratory effort, lungs clear to auscultation Cardiovascular: RRR, no murmur, no edema Skin: no rashes, warm and dry Neurologic: patellar DTR's 2+ bilat, sensation intact Psychiatric: A+Ox3, euthymic affect Genitourinary: no vaginal lesions, no adnexal mass OB Exam Abdomen: + fundal height, + vertex and + regular contractions Manual OB Exam: + cervical dilation 5 cm, + cervical effacement 80% and + station -2 Results & Data ([facility]) Laboratory Results all Code Status & VTE Plan VTE Prophylaxis Plan VTE Prophylaxis will be ordered: No Monitoring External Monitor Cat 1
[2021-08-23] MEDS ORDERED: ceFAZolin 2000MG 2,000 MG/15 ML SYR IV ONE (19:45)
[2021-08-23 19:51] LABS: Hematocrit (blood only) 33.6 % (37-47); Hemoglobin 11.4 g/dL (12.0-16.0); Mean Corpuscular Hemoglobin 30.9 pg (25-34); Mean Corpuscular Hgb Conc 33.9 g/dL (32-36); Mean Corpuscular Volume 91.1 fL (80-100); Mean Platelet Volume 11.9 fL (7.4-10.4); Platelet Count 202 K/uL (130-400); RDW Coefficient of Variation 12.9 % (11.5-14.5); RDW Standard Deviation 42.9 fL (36.4-46.3); Red Blood Count 3.69 M/uL (4.2-5.4); White Blood Count 13.49 K/uL (4.8-10.8)
--- NOTE | 2021-08-23 20:51 | Labor Progress Brief Note ---
Date of Service August 23, 2021 Assessment & Plan Admission and Anticipated Discharge Date Admission Date: August 23, 2021 Physical Exam Genitourinary: Manual OB Exam: + cervical dilation 6 cm and 7 cm, + cervical effacement 90%, + station -2 and + amniotic fluid clear OB Exam Monitor Tracing: + external FHT monitor used, + external uterine monitor used, + category I and + normal FHT variability AROM with Amni-hook clear fluid Results & Data ([facility]) Vital Signs (Past 12 Hours) Vital Signs Temp Pulse Resp BP 08/23/21 20:15 86 20 118/73 08/23/21 19:30 36.8 C 18
[2021-08-23] MEDS ORDERED: BUTORPHANOL TARTRATE 1 MG/ML VIAL IV STA (22:00)
[2021-08-23] MEDS ORDERED: BUTORPHANOL TARTRATE 1 MG/ML VIAL ONE (22:00)
[2021-08-23] MEDS: OXYTOCIN 30 UNITS/500 ML BAG IV PRN ×2 (23:05→23:38)
--- NOTE | 2021-08-23 23:20 | Delivery Summary ---
Vaginal Delivery Summary Date of Service August 23, 2021 Vaginal Delivery Summary Delivery Note Live female direct OP over intact perineum with delayed cord clamping and Apgars 8/9 birthweight pending. Cord blood obtained followed by spontaneous delivery of intact placenta. No tears. EBL 150 ml. Final sponge and instrument count are correct. Mom and baby stable.
[2021-08-23] MEDS ORDERED: OXYTOCIN 30 UNITS/500 ML BAG IV PRN (23:50)
[2021-08-23] MEDS ORDERED: BENZOCAINE 20% AER SPR 82.5 GM CAN EXT PRN (23:50)
[2021-08-23] MEDS ORDERED: DIPHTHERIA/TETANUS/PERTUSSIS 0.5 ML SYR/VIAL IM ONE (23:50)
[2021-08-23] MEDS ORDERED: HYDROCORTISONE ACETATE 25 MG SUPP PR PRN (23:50)
[2021-08-23] MEDS ORDERED: bisacodyL 10 MG SUPP PR PRN (23:50)
[2021-08-23] MEDS ORDERED: ACETAMINOPHEN 325 MG TAB PO PRN (23:50)
[2021-08-23] MEDS ORDERED: DOCUSATE SODIUM 100 MG CAP PO PRN (23:50)
[2021-08-23] MEDS ORDERED: ONDANSETRON 4 MG OD TAB PO PRN (23:58)
[2021-08-24] MEDS ORDERED: ALBUTEROL HFA 8 GM INHALER INH PRN (00:12)
[2021-08-24] MEDS ORDERED: ceFAZolin 1000MG 1,000 MG/7.5 ML SYR IV PRN (02:19)
[2021-08-24] MEDS: NICOTINE 21 MG/24 HR TDSY TD SCH (08:01)
[2021-08-24] MEDS: IBUPROFEN 600 MG TAB PO PRN ×2 (08:02→21:12)
[2021-08-24] MEDS: PRENATAL VITAMIN 1 TAB PO SCH (08:02)
[2021-08-24] MEDS: FERROUS SULFATE 325 MG TAB PO SCH (08:02)
[2021-08-24] MEDS: DOCUSATE SODIUM 100 MG CAP PO SCH ×2 (08:02→21:13)
[2021-08-24] MEDS ORDERED: NON-FORMULARY MEDICATION (Ferrous Sulfate [Iron] 325 mg (65 mg iron) Tablet) PO SCH (09:00)
[2021-08-24] MEDS ORDERED: ASCORBIC ACID 500 MG TAB PO SCH (09:00)
[2021-08-24 09:11] LABS: Hematocrit (blood only) 35.1 % (37-47); Hemoglobin 11.8 g/dL (12.0-16.0); Mean Corpuscular Hemoglobin 30.7 pg (25-34); Mean Corpuscular Hgb Conc 33.6 g/dL (32-36); Mean Corpuscular Volume 91.4 fL (80-100); Platelet Count 200 K/uL (130-400); RDW Coefficient of Variation 12.9 % (11.5-14.5); Red Blood Count 3.84 M/uL (4.2-5.4); White Blood Count 20.04 K/uL (4.8-10.8)
--- NOTE | 2021-08-24 09:16 | Obstetrical Progress Note ---
Date of Service August 24, 2021 Subjective Ambulation: ambulating normally Voiding: no voiding problems Passing Gas:: Yes Diet Tolerance:: regular diet Lochia:: Small Feeding Type:: breast feeding Current Pain Level(1-10): 0 doing well Physical Exam Constitutional WD/WN, vitals as above Gastrointestinal (Abdomen) abdomen soft and non-tender. fundus firm below U Skin no rashes, warm and dry Neurologic patellar DTR's 2+ bilat, sensation intact Psychiatric A+Ox3, euthymic affect Results & Data ([facility]) Vital Signs (Past 12 Hours) Vital Signs Temp Pulse Pulse Resp BP BP Pulse Ox 08/24/21 04:05 36.9 C 73 18 119/71 98 08/24/21 01:10 36.9 C 18 111/59 L 08/24/21 00:40 78 18 114/59 L 08/24/21 00:10 84 18 118/67 08/23/21 23:55 72 18 107/63 08/23/21 23:40 80 18 113/59 L 08/23/21 23:25 71 18 109/57 L 08/23/21 23:10 75 18 102/51 L 08/23/21 22:55 36.5 C 08/23/21 21:58 77 120/73 98 Laboratory Results Laboratory Results - last 48 hr 08/23/21 08/23/21 08/23/21 19:11 19:11 20:34 WBC 13.49 H RBC 3.69 L Hgb 11.4 L Hct 33.6 L MCV 91.1 MCH 30.9 MCHC 33.9 RDW Std Deviation 42.9 RDW Coeff of Michael 12.9 Plt Count 202 MPV 11.9 H SARS-CoV-2, RNA, NAAT NEGATIVE Blood Type A Positive Blood Type Recheck Antibody Screen NEGATIVE Crossmatch See Detail 08/23/21 08/24/21 20:35 08:23 WBC 20.04 H RBC 3.84 L Hgb 11.8 L Hct 35.1 L MCV 91.4 MCH 30.7 MCHC 33.6 RDW Std Deviation 43.0 RDW Coeff of Michael 12.9 Plt Count 200 MPV 12.0 H SARS-CoV-2, RNA, NAAT Blood Type Blood Type Recheck A Positive Antibody Screen Crossmatch
[2021-08-24] MEDS ORDERED: bisacodyL 5 MG TABEC PO SCH (20:00)
--- NOTE | 2021-08-25 06:50 | Obstetrical Progress Note ---
Date of Service August 25, 2021 Assessment & Plan (1) Medical marijuana use: (2) Smoker: (3) Active labor at term: (4) Normal course: Continue routine PP [facility] today with f/u in clinic Subjective Ambulation: ambulating normally Voiding: no voiding problems Passing Gas:: Yes Diet Tolerance:: regular diet Lochia:: Small Feeding Type:: breast feeding Current Pain Level(1-10): 0 Doing well, home today. Breast and bottel feeding Physical Exam Constitutional WD/WN, vitals as above Respiratory normal respiratory effort, lungs clear to auscultation Cardiovascular RRR, no murmur, no edema Gastrointestinal (Abdomen) normal bowel sounds, soft, nontender, no hepatosplenomegaly Results & Data ([facility]) Vital Signs (Past 12 Hours) Vital Signs Temp Pulse Resp BP Pulse Ox 08/24/21 22:50 36.8 C 69 16 111/66 98 08/24/21 20:30 36.8 C 70 17 112/66 96
[2021-08-25 07:09] LABS: Hemoglobin 11.7 g/dL (12.0-16.0)
[2021-08-25] MEDS: IBUPROFEN 600 MG TAB PO PRN (09:53)
[2021-08-25] MEDS: PRENATAL VITAMIN 1 TAB PO SCH (09:53)
[2021-08-25] MEDS: FERROUS SULFATE 325 MG TAB PO SCH (09:53)
[2021-08-25] MEDS: DOCUSATE SODIUM 100 MG CAP PO SCH (09:53)
[2021-08-25] MEDS: NICOTINE 21 MG/24 HR TDSY TD SCH (09:54)
== END 2021-08-25 12:55 | disposition home or self-care (01) | DRG 807 ==
LOC: OPB 18:24 → 4E1 18:26